=== PATIENT | female | born 1940 | race Caucasian/White ===

== ENCOUNTER 2018-10-20 11:22 | Emergency (ER) | payer MEDICARE ==
--- NOTE | 2018-10-20 11:33 | UC ---
Dizzy HPI HPI Summary: 78 yo female presents with weakness and feeling dizzy/lightheaded for the last 3 days. She is accompanied by her daughter. Daughter tells me that 3 days ago pt was very active cutting down branches and trees, but then developed fatigue, weakness, shuffling gait, and felt lightheaded. She rested and symptoms slightly improved. 2 days ago she woke up in bed and had difficulty sitting up in bed - took her about 15 minutes to get out of bed. Symptoms have continued into today. Daughter tells me that pt seems to be slurring her speech and acting "drunk" over the last 3 days. Pt does have a hx of an acoustic neuroma and last had an MRI about 2 years ago that they tell me revealed a prior CVA that pt was unaware of having. She is also diabetic. Currently denies fever, chills, SOB, chest pain, headache, numbness. - History Of Current Complaint Stated Complaint: BALANCE OFF Time Seen by Provider: 10/20/18 11:33 Hx Obtained From: Patient, Family/Casting Assistant Onset/Duration: Sudden Onset Severity Currently: None - Allergies/Home Medications Allergies/Adverse Reactions: Allergies Allergy/AdvReac Type Severity Reaction Status Date / Time Sulfa (Sulfonamide Allergy Intermediate Unknown Verified 10/20/18 11:41 Antibiotics) Reaction Details Home Medications: Home Medications Dapagliflozin 10 mg Tab (Nf) [Farxiga] 10 mg PO DAILY 10/20/18 [History Confirmed 10/20/18] PMH/Surg Hx/FS Hx/Imm Hx - Additional Past Medical History Additional PMH: Acoustic neuroma Endocrine History: Diabetes - Surgical History Surgical History: Yes Surgery Procedure, Year, and Place: CATARACTS - Family History Known Family History: Positive: Unknown - Social History Lives: With Family Substance Use Type: None Smoking Status (MU): Never Smoked Tobacco Review of Systems All Other Systems Reviewed And Are Negative: Yes Constitutional: Positive: Negative Skin: Positive: Negative Eyes: Positive: Negative ENT: Positive: Negative Respiratory: Positive: Negative Cardiovascular: Positive: Negative Gastrointestinal: Positive: Negative Genitourinary: Positive: Negative Motor: Positive: Negative Neurovascular: Positive: Negative Musculoskeletal: Positive: Negative Neurological: Positive: Weakness, Other - Dizziness Psychological: Positive: Negative Physical Exam - Summary Physical Exam Summary: GENERAL: NAD. WDWN. No pain distress. SKIN: No rashes, sores, ulcers, masses, lesions. HEENT: Head: AT/NC. Eyes: PERRLA. EOM intact. Conjunctiva clear without inflammation or discharge. Ears: Hearing grossly normal. TMs intact, no bulging, erythema, or edema. No hemotympanum Nose: Nasal mucosa pink and moist. NTTP maxillary and frontal sinus. Throat: Posterior oropharynx without exudates, erythema, or tonsillar enlargement. Uvula midline. NECK: Supple. Nontender. FROM CHEST: CTAB. No r/r/w. No accessory muscle use. Breathing comfortably and in no distress. CV: RRR. 3/5 systolic murmur. Pulses intact. Brisk cap refill. ABDOMEN: Soft. NTTP. Bowel sounds present MSK: FROM in B/L UEs and LEs with symmetric strength. NEURO: A&Ox3. 3 word recall, remote, recent memory, ability to follow 2-step directions, and attention intact. CN: II: Peripheral crow intact. Vision normal. III, IV, : EOMI. No nystagmus. PERRLA. V: Sensations intact and symmetric. Opens mouth and clenches teeth. VII: No facial asymmetry. Forehead wrinkles. Grins, shuts eyes, frowns, puffs cheeks. VIII: Hearing intact to finger rub. IX, X: Swallows and coughs. Uvula midline. XI: Shrugs shoulders. Turns head against resistance. XII: No tongue deviation Scigbc-sp-wcia are intact. SLURS SOME WORDS PSYCH: Age appropriate behavior. Triage Information Reviewed: Yes Vital Signs: Vital Signs: Temp Pulse Resp BP Pulse Ox 98.6 F 61 16 163/102 95 10/20/18 12:06 10/20/18 12:06 10/20/18 12:06 10/20/18 12:06 10/20/18 12:06 Vital Signs Reviewed: Yes National Institutes Of Health - NIH Scale Level of Consciousness: Alert/Keenly Responsive Ask Patient the Month and His/Her Age: Both Correct Ask Pt to Open/Close Eyes and Senior Lead Project Manager/Release Non-Paretic Hand: Both Correctly Best Gaze (Only Horizontal Eye Movement): Normal Visual Field Testing: No Visual Loss Facial Paresis-Pt to Smile & Close Eyes or Grimace Symmetry: Normal/Symmetrical Motor Function - Right Arm: No Drift-Holds 10 Seconds Motor Function - Left Arm: No Drift-Holds 10 Seconds Motor Function - Right Leg: No Drift-Holds 10 Seconds Motor Function - Left Leg: No Drift-Holds 10 Seconds Limb Ataxia-Must be out of Proportion to Weakness Present: Absent Sensory (Use Pinprick to Test Arms/Legs/Trunk/Face): Normal Best Language (Describe Picture, Name Items): No Aphasia Dysarthria (Read Several Words): Slurs Some Words Extinction and Inattention: No Abnormality Total Score: 1 Dizzy Course/Dx - Course Course Of Treatment: EKG NSR 61bpm with LVH. No ST changes as read by Dr. Henson POC glucose 175. Pt seems to be exhibiting CVA signs with dizziness, slurred speech, weakness, and elevated BP. Symptoms have been present for about 3 days as that was her last known well. I discussed my concerns with pt and her daughter and recommended ambulance transfer to the ED - they were agreeable to this and left via EMS in stable condition. Report called to Dr. Huynh in the ED - no code argueta given length of symptoms - Differential Dx/Diagnosis Provider Diagnosis: Dizziness, Slurred speech Discharge - Sign-Out/Discharge Documenting (check all that apply): Patient Departure All imaging exams completed and their final reports reviewed: No Studies - Discharge Plan Condition: Fair Disposition: TRANS HIGHER LVL OF CARE FAC Referrals: Shaheen Dykes MD [Primary Care Provider] - - Billing Disposition and Condition Condition: FAIR Disposition: Trans Higher Lvl of Care Fac
[2018-10-20 12:07] VITALS: BP 163/102
== END 2018-10-20 12:20 | disposition short-term general hospital (02) ==
LOC: UCEAST 11:22
DX: R42 Dizziness and giddiness (principal); R47.81 Slurred speech; E11.9 Type 2 diabetes mellitus without complications; Z88.2 Allergy status to sulfonamides
CPT/HCPCS: 93005; 99213; G0463

== ENCOUNTER 2018-12-03 01:42 | Inpatient (IN) | payer MEDICARE ==
--- NOTE | 2018-12-03 02:35 | ED ---
Shortness of Breath - HPI Summary HPI Summary: 78 year old F [facility] accompanied by daughter complains of shortness of breath since 2 days ago. Daughter states that patient woke daughter up prior to arrival because patient was scared she wasn't able to breath. Daughter states that patient does not wear O2 at home. Patient reports left sided low back pain. Patient reports slurred speech. Denies abdominal pain , vomiting, diarrhea, burning with urination. Symptoms aggravated by nothing. Symptoms alleviated by nothing. Patient has not treated the pain with any medications. Patient states she does not have hx shortness of breath. Patient states she does not have an inhaler. Patient states she had a stroke 6-7 weeks ago, was admitted for 2 nights, and discharged home with medications which she has been taking. Patient states she never had improvement in her neurological symptoms since being discharged. Per daughter, patient was seen by primary care provider on Saturday12/01/18 to be evaluated for headache, diffuse chest pain, ear ache, and was given medications. She has been taking these medications which has been making her dizzy and short of breath per daughter. Patient and daughter state that last month, patient talked to her doctors about about cardiac cath and she refused. - History of Current Complaint Chief Complaint: EDShortnessOfBreath Time Seen by Provider: 12/03/18 02:24 Hx Obtained From: Patient, Family/Dairy Lab Technician - daughter Onset/Duration: Lasting Days - 2, Still Present Timing: Constant Aggravating Factors: Nothing Alleviating Factors: Nothing - Allergy/Home Medications Allergies/Adverse Reactions: Allergies Allergy/AdvReac Type Severity Reaction Status Date / Time Sulfa (Sulfonamide Allergy Intermediate Unknown Verified 12/03/18 03:01 Antibiotics) Reaction Details PMH/Surg Hx/FS Hx/Imm Hx Endocrine/Hematology History: Reports: Hx Diabetes Denies: Hx Thyroid Disease Cardiovascular History: Reports: Hx Hypertension Denies: Hx Pacemaker/ICD Respiratory History: Denies: Hx Asthma, Hx Chronic Obstructive Pulmonary Disease (COPD) GI History: Denies: Hx Ulcer History: Denies: Hx Dialysis, Hx Renal Disease Sensory History: Reports: Hx Contacts or Glasses, Hx Hearing Aid - REMOVED Opthamlomology History: Reports: Hx Contacts or Glasses Neurological History: Reports: Other Neuro Impairments/Disorders - stroke Psychiatric History: Denies: Hx Panic Disorder - Surgical History Surgery Procedure, Year, and Place: CATARACTS Infectious Disease History: No Infectious Disease History: Denies: Hx Hepatitis, Hx Human Immunodeficiency Virus (HIV), Traveled Outside the [place] in Last 30 Days - Family History Known Family History: Negative: Cardiac Disease - Social History Alcohol Use: None Hx Substance Use: No Substance Use Type: Reports: None Hx Tobacco Use: No Smoking Status (MU): Never Smoked Tobacco Review of Systems - ROS Summary Review of Systems Summary: Home Medications Medication Instructions Recorded Confirmed Type Ascorbic Acid TAB* [Vitamin C 500 mg PO DAILY 10/20/18 10/20/18 History TAB*] Dapagliflozin 10 mg Tab (Nf) 10 mg PO DAILY 10/20/18 10/20/18 History [Farxiga] FLUoxetine CAP* [Prozac CAP*] 80 mg PO BEDTIME 10/20/18 10/20/18 History Gabapentin CAP(*) [Neurontin 300 300 mg PO BEDTIME 10/20/18 10/20/18 History CAP(*)] glipiZIDE TAB* [Glucotrol TAB*] 10 mg PO BID 10/20/18 10/20/18 History Aspirin 81 mg CHEW TAB* 81 mg PO DAILY #30 tab.chew 10/22/18 Rx Atorvastatin* [Lipitor 80 MG*] 80 mg PO DAILY #30 tab 10/22/18 Rx Clopidogrel TAB* [Plavix TAB*] 75 mg PO DAILY #30 tab 10/22/18 Rx Metoprolol Succinate XL TAB* 25 mg PO DAILY #30 tab.xl 10/22/18 Rx [Toprol XL TAB*] Positive: Shortness Of Breath Negative: Abdominal Pain, Vomiting, Diarrhea Negative: burning Positive: Other - left sided low back pain Positive: Slurred Speech All Other Systems Reviewed And Are Negative: Yes Physical Exam - Summary Physical Exam Summary: General: An elderly obese FEMALE. No acute distress. HEENT: Normocephalic, Atraumatic. Eyes: Conjuctiva normal, PERRL. Ears: TMs within normal limits. Nares: (-) discharge, (-) erythema. Oropharynx: Clear, mucous membranes moist, (-) exudates. Neck: Soft, FROM, (-) lymphadenopathy, (-) thyromegaly, (-) JVD. Cardiovascular: Normal sinus rhythm, (-) murmur. Lungs: Has audible wheezing, good breath sounds bilaterally Abdomen: Soft, tenderness in left lateral abdomen, non-distended, (-) organomegaly, normal bowel sounds. Back: Ecchymosis on right scapula area, Extremities: No edema. Skin: Warm, dry, (-) rash. Neuro: Alert and oriented x3, no focal deficits. Psychiatric: Mood normal, affect normal. Triage Information Reviewed: Yes Vital Signs On Initial Exam: Initial Vitals Temp Pulse Resp BP Pulse Ox 98.5 F 89 24 120/80 86 12/03/18 01:43 12/03/18 01:43 12/03/18 01:43 12/03/18 01:43 12/03/18 01:43 Vital Signs Reviewed: Yes Diagnostics - Vital Signs Vital Signs Temp Pulse Resp BP Pulse Ox 12/03/18 01:43 98.5 F 89 24 120/80 86 - Laboratory Result Diagrams: 12/03/18 02:54 12/03/18 02:54 Lab Statement: Any lab studies that have been ordered have been reviewed, and results considered in the medical decision making process. - Radiology CXR Radiology Interpretation Completed By: ED Physician Summary of Radiographic Findings: Right sided pneumonia, chf. Pending official report - EKG 0333 Cardiac Rate: NL - 86 BPM Summary of EKG Findings: EKG at 03:33 reveals normal sinus rhythm with rate of 86 BPM, no ischemic changes. New LBBB. Non STEMI. This EKG was reviewed and interpreted by Dr. Garcia. Re-Evaluation - Re-Evaluation First Eval Re-Evaluation Time: 03:12 Comment: CXR suggestive of right-sided pneumonia. Will start patient on Zosyn. Will order ABG Second Eval Re-Evaluation Time: 03:43 Comment: patient and daughter udpated on plan of care. they are informed of the possibility of admission. patient and daughter state that last month, patient talked to her doctors about about cardiac cath and she refused. patient refuses now too. Course/Dx - Course Course Of Treatment: 78 year old F presenting to [facility] accompanied by daughter complains of shortness of breath since 2 days ago. Patient reports left sided low back pain. Patient reports slurred speech. Denies abdominal pain, vomiting, diarrhea, burning with urination. Recent medication changes per daughter. Physical exam findings: an obese elderly female, audible wheezing, good breath sounds bilaterally, no edema, ecchymosis on right scapula area, tenderness in left lateral abdomen. CXR shows right sided pneumonia. Patient will be started on Zosyn. Bloodwork results with no significant abnormalities except for WBC 15.9, absolute neuts 14.5, absolute lymphs 0.7, INR 1.23, sodium 133, chloride 97, anion gap 13, BUN 61, creatinine 1.68, BUN/creatinine 36.3, glucose 380, troponin 2.45. ABG shows no significant abnormalities except for CO2 32, O2 59 , and O2 saturation 91.8. . In the ED course, the patient was given Duoneb x1 and hydated with Zosyn bag. Patient was placed on oxygen. EKG at 03:33 reveals normal sinus rhythm with rate of 86 BPM, no ischemic changes. New LBBB. Non STEMI. This EKG was reviewed and interpreted by Dr. Garcia. Patient and daughter state that last month, patient talked to her doctors about about cardiac cath and she refused. Patient refuses cardiac cath now too despite elevated troponin and shortness of breath. Dr. Martin, cardiology, recommends admission to the hospitalist. Dr. Rowe, hospitalist, agrees to admit patient at 03:49. The patient will be admitted to the hospitalist for further workup and management. - Diagnoses Provider Diagnoses: Shortness of breath, Pneumonia, Elevated troponin, CHF (congestive heart failure) - Physician Notifications Discussed Care of Patient With: Richie Martin Time Discussed With Above Provider: 03:41 Instructed by Provider To: Other - Dr. Martin, cardiology, recommends admission to the hospitalist. Dr. Rowe, hospitalist, agrees to admit patient at 03:49. Discharge ED - Sign-Out/Discharge Documenting (check all that apply): Patient Departure - Admit Patient Received Moderate/Deep Sedation with Procedure: No - Discharge Plan Condition: Stable Disposition: ADMITTED TO [facility] Referrals: Shaheen Dykes MD [Primary Care Provider] - - Billing Disposition and Condition Condition: STABLE Disposition: Admitted to [facility] - Attestation Statements Document Initiated by Scribe: Yes Documenting Scribe: Madison Quintero Provider For Whom Scribe is Documenting (Include Credential): Yasemin Garcia MD Scribe Attestation: Madison Calvert, scribed for Yasemin Garcia MD on 12/03/18 at 0527. Scribe Documentation Reviewed: Yes Provider Attestation: The documentation as recorded by the scribe, Madison Quintero accurately reflects the service I personally performed and the decisions made by me, Yasemin Garcia MD Status of Scribe Document: Viewed
[2018-12-03] MEDS ORDERED: Albuterol/Ipratropium NEB.SOL* Albuterol 2.5 MG/Ipratropium 0.5 MG 3 ML INH ONE (02:37)
[2018-12-03 03:01] LABS: ABS Lymphocytes 0.7 10^3/ul (1.0-4.8); ABS Monocytes 0.7 10^3/ul (0-0.8); ABS Neutrophils 14.5 10^3/ul (1.5-7.7); Hematocrit 42 % (35-47); Hemoglobin 13.7 g/dL (12.0-16.0); Lymphocyte % 4.3 %; Mean Corpuscular HGB Conc 33 g/dL (31-36); Mean Corpuscular Hemoglobin 29 pg (27-31); Mean Corpuscular Volume 89 fL (80-97); Mean Platelet Volume 7.9 fL (7.4-10.4); Platelet Count 367 10^3/uL (150-450); Red Blood Count 4.71 10^6 /uL (3.70-4.87); Red Cell Distribution Width 14 % (10-15); White Blood Count 15.9 10^3/uL (3.5-10.8)
[2018-12-03 03:06] LABS: INR 1.23 (0.82-1.09)
[2018-12-03] MEDS ORDERED: Piperacillin/Tazobac ADVAN(*) 3.375 GM in NS 0.9% 100 ML* 100 ML IVPB ONE (03:12)
[2018-12-03 03:19] LABS: ALT 21 U/L (7-52); AST 15 U/L (13-39); Albumin 3.8 g/dL (3.2-5.2); Albumin/Globulin Ratio 1.1 (1-3); Alkaline Phosphatase 89 U/L (34-104); Anion Gap 13 mmol/L (2-11); BUN/Creatinine Ratio 36.3 (8-20); Blood Urea Nitrogen 61 mg/dL (6-24); CO2 Carbon Dioxide 23 mmol/L (22-32); Calcium 9.6 mg/dL (8.6-10.3); Chloride 97 mmol/L (101-111); EGFR African American 35.8 (>60); EGFR Non-African American 29.6 (>60); Globulin 3.6 g/dL (2-4); Glucose 380 mg/dL (70-100); Potassium 4.2 mmol/L (3.5-5.0); Sodium 133 mmol/L (135-145); Total Protein 7.4 g/dL (6.4-8.9)
[2018-12-03 03:25] LABS: Troponin I 2.45 ng/mL (<0.04)
[2018-12-03] MEDS ORDERED: Furosemide IV* 10 MG/ML 2 ML VIAL (20 MG) IV SLOW PU ONE (04:43)
[2018-12-03] MEDS ORDERED: Nitroglycerin TAB 0.4 MG* 0.4 MG TAB SL ONE (04:50)
[2018-12-03] MEDS ORDERED: Dextrose 50% VIAL 50 ml IV PUSH PRN (04:56)
[2018-12-03 05:07] LABS: Creatine Kinase 43 U/L (10-223)
[2018-12-03 05:13] LABS: CKMB ng/mL 2.9 ng/mL (0.6-6.3)
[2018-12-03] MEDS ORDERED: Heparin VIAL(*) 5000 UNITS/ML VIAL (FIVE THOUSAND) SUBCUT SCH (06:00)
[2018-12-03] MEDS ORDERED: Aspirin 81 mg CHEW TAB* 81 MG TAB.CHEW PO ONE (06:15)
[2018-12-03 07:16] LABS: C Reactive Protein 110.79 mg/L (<8.01); Creatine Kinase 43 U/L (10-223)
[2018-12-03 07:23] LABS: CKMB ng/mL 3.5 ng/mL (0.6-6.3)
[2018-12-03 07:31] LABS: Troponin I 2.76 ng/mL (<0.04)
--- NOTE | 2018-12-03 07:46 | HP ---
CC: Primary care provider. HISTORY AND PHYSICAL: ADDENDUM: ASSESSMENT AND PLAN: Leukocytosis: The patient has an elevated white blood cell count. Again, she does not appear to be infected without any fever, cough , or sputum production. The leukocytosis may be secondary to acute myocardial infarction. We will need to follow this and monitor for signs of infection. Hyperlipidemia: Continue statin. DVT prophylaxis: According to the Adult Thrombosis Prophylaxis Risk Factor Assessment Guide, the patient has a total risk factor score of 4, making her high risk. Heparin 5000 units subcutaneous q.8 hours will be used for DVT prophylaxis. Code status is full. TIME SPENT: Sixty-five minutes was spent admitting this patient. [id number]/CPS #: [id number] MTDD
[2018-12-03] MEDS: Metoprolol Succinate XL TAB* 25 MG PO SCH (08:20)
--- NOTE | 2018-12-03 08:20 | HP ---
ADDENDUM NOW INCLUDED ON THIS REPORT CC: Primary Care Provider, Dr. Dykes * HISTORY AND PHYSICAL: DATE OF ADMISSION: 12/03/18 PRIMARY CARE PROVIDER: Dr. Dykes. CHIEF COMPLAINT: Shortness of breath. HISTORY OF PRESENT ILLNESS: Ms. Peacock is a 78-year-old female who was admitted last on 10/20/18 where she was diagnosed with CVA. Additionally, at that time, there was concern for an abnormal EKG. The patient was offered a stress test, however, she adamantly refused stating that she would not undergo cardiac catheterization. I felt that this could be considered as an outpatient. The patient states that since her discharge, she developed severe headache. She developed diffuse aches in her hips all the way up to her shoulders. She saw her PCP, Dr. Dykes, this past Saturday and was diagnosed with polymyalgia rheumatica. She was started on methylprednisolone in a tapering dose. The patient states the day after initiating the methylprednisolone, her headaches completely went away. On Saturday evening, however, the patient noted that her breathing became labored. She felt like she could not catch her breath. She denies any fever or chills. She has no cough. She has no sputum production. She has no sick contacts. She has noted that on Saturday evening, it felt harder to breathe while lying flat and she felt it was easier to breathe with sitting up. The patient denies any chest pain since being home, however, when she arrived to the emergency room, she did have severe left lower lateral chest pain that is somewhat posterior as well. She described this to be severe in nature. Of note, the patient is extremely hard of hearing and a difficult historian. PAST MEDICAL HISTORY: 1. Recent diagnosis of CVA. 2. Type 2 diabetes. 3. Depression. 4. Acoustic neuroma. 5. Hyperlipidemia. PAST SURGICAL HISTORY: Cataract surgery. MEDICATIONS: 1. Methylprednisolone 16 mg p.o. daily, on 12/03/18 tapering by 4 mg every day until done. 2. Glipizide 10 mg p.o. b.i.d. 3. Metoprolol XL 25 mg p.o. daily. 4. Gabapentin 300 mg p.o. q.h.s. 5. Fluoxetine 80 mg p.o. q.h.s. 6. Farxiga 10 mg p.o. daily. 7. Plavix 75 mg p.o. daily to complete 30 days, then will be done. 8. Lipitor 80 mg p.o. daily. 9. Aspirin 81 mg p.o. daily. 10. Vitamin C 500 mg p.o. daily. ALLERGIES: SULFA. FAMILY HISTORY: Father of an aneurysm at the age of 64. Mother of complications related to heart failure at the age of 88. SOCIAL HISTORY: The patient is a lifelong nonsmoker. She does not drink alcohol. She has 3 children. She lives with her daughter, Melani, who will be her healthcare proxy. REVIEW OF SYSTEMS: A complete 11-system review of systems was obtained. Pertinent positives and negatives are as per HPI and otherwise negative. PHYSICAL EXAMINATION GENERAL: The patient is a well-developed, elderly female, sitting up in stretcher, in no acute distress. VITAL SIGNS: Blood pressure is 106/77, pulse 91, respirations 38, temperature 98.5, O2 saturation 97% on 3 L. HEENT: Pupils are round. There is evidence of prior cataract extraction. Extraocular muscles are intact. Oropharynx is clear. Oral mucosa is dry. There is no submandibular, cervical, or supraclavicular adenopathy. PULMONARY: There are few crackles heard on the right and left upper lobes. CARDIAC: Normal S1, S2. Regular rate and rhythm. I do not appreciate any murmurs. There is no lower extremity edema. ABDOMEN: Bowel sounds are present. Abdomen is soft, nontender, nondistended. MUSCULOSKELETAL: There is no cyanosis or clubbing of the digits. There is full active range of motion of all four extremities. NEUROLOGIC: Cranial nerves II through XII appeared to be grossly intact. Sensation is intact to light touch throughout. Strength is 5/5 and symmetric in both upper and lower extremities bilaterally. PSYCH: The patient is alert. She is oriented x3. Again, she is a difficulty historian, but I believe that is related to her being very hard of hearing. SKIN: Warm and dry. There are no rashes. DIAGNOSTIC STUDIES/LAB DATA: WBC 15.9, hemoglobin 13.7, hematocrit 42, platelets 367. INR 1.23. Sodium 133, potassium 4.2, chloride 97, CO2 is 23, BUN 61, creatinine 1.68, glucose 380, lactic acid 2.0, calcium 9.6. Bilirubin 0.7, AST 15, ALT 21, alkaline phosphatase 89. CPK 43. CK-MB 2.9. Troponin 2.45 (I have asked this to be respun and rerun in the lab). BNP greater than 1300. Albumin 3.8. ABG 7.45/32/59. EKG reveals normal sinus rhythm with a new left bundle-branch block. Chest x-ray to my interpretation reveals diffuse pulmonary edema. ASSESSMENT AND PLAN: Mrs. Peacock is a 78-year-old female with history of recently diagnosed cerebrovascular accident, type 2 diabetes, hyperlipidemia, and possible new diagnosis of polymyalgia rheumatica made this past Saturday, who presents to the emergency room with complaints of shortness of breath. 1. Dyspnea. My suspicion is that the patient's dyspnea is secondary to acute congestive heart failure. She has diffuse patchy infiltrates on her chest x- ray and I would expect that if this was pneumonia, the patient would have some sort of cough, sputum production or appear to be acutely ill. She has none of those at this time making me suspicious that the patchy infiltrate seen on chest x-ray are in fact likely pulmonary edema. The patient's BNP is greater than 1300. In October, she had a BNP obtained and it was elevated at 465, but this is much more elevated than it was previously. She did have a transthoracic echocardiogram in October at the time of her diagnosis of her cerebrovascular accident and that revealed an EF of 50% to 55%. Due to likely new congestive heart failure, I am going to repeat the transthoracic echocardiogram to ensure that her EF is still the same. I want to give the patient Lasix, however, her creatinine is approximately twice her typical baseline. Her oral mucosa is dry. Additionally, I had the ER nurse give the patient a dose of nitroglycerin due to the complaints of severe left lower chest pain. She is slightly hypotensive and therefore, we will hold off on the Lasix for right now as the patient is not in any distress. I would like to administer the Lasix a little bit later this morning and see if this helps with her respiratory status. 2. Elevated troponin. The patient's troponin is elevated at 2.45. She did not complain of any chest pain until she arrived at the emergency room and then she developed severe left lower lateral chest pain. CK and CK-MB, however, are not elevated. Perhaps, this is very early acute myocardial infarction or the troponin is wrong. I have asked the lab to rerun the troponin sample by spinning it first and then rerunning. I am, however, concerned that the patient has a new left bundle-branch block. This is changed from October 2018. If the patient's troponin returns elevated, I will initiate heparin drip. She is already on aspirin, however, she has finished her Plavix. She will also continue on her metoprolol XL and Lipitor. The patient has adamantly refused cardiac catheterization, however, I have asked her to consider cardiology consultation to discuss further if her troponin does in fact return back positive. 3. Type 2 diabetes. The patient's glipizide and Farxiga are going to be held temporarily. She will be on Lispro sliding scale. She had a hemoglobin A1c obtained on 10/21/18 and it was elevated 8.3%. 4. Acute kidney injury. The patient has creatinine two times her baseline. She does appear to be dry on oral mucosa. As it appears that she likely has pulmonary edema, I do not want to administer any fluids. It is unclear what the insults to her kidney may be from. We will obtain kidney and bladder ultrasound to rule out hydronephrosis. 5. Leukocytosis. ADDENDUM: ASSESSMENT AND PLAN: Leukocytosis: The patient has an elevated white blood cell count. Again, she does not appear to be infected without any fever, cough , or sputum production. The leukocytosis may be secondary to acute myocardial infarction. We will need to follow this and monitor for signs of infection. Hyperlipidemia: Continue statin. DVT prophylaxis: According to the Adult Thrombosis Prophylaxis Risk Factor Assessment Guide, the patient has a total risk factor score of 4, making her high risk. Heparin 5000 units subcutaneous q.8 hours will be used for DVT prophylaxis. Code status is full. TIME SPENT: Sixty-five minutes was spent admitting this patient. [id number]/CPS #: [id number] #: [id number]
--- NOTE | 2018-12-03 08:21 | PN ---
Hospitalist Progress Note Date of Service: 12/03/18 HOSPITALIST PROGRESS NOTE Patient seen and examined at bedside. Care reviewed and d/w Sherry Medrano RN. Mrs Peacock is a 78yo F with PMH of acoustic neuroma, HLD, depression, type 2 DM, recent admission for CVA, who was noted to have EKGs at that time, but declined further w/u; who presented to ED with c/o dyspnea, found to have NSTEMI and CHF exacerbation. Lengthy conversation with patient at bedside. She's not interested in invasive or aggressive measures; she really wants to go home. We talked about goals of care and code status. She's inclined to pursue Palliative care and is thinking about being DNR, but her daughter is having a very hard time with her mom's decision. At the end of our conversation, patient removed her hearing aid and stated she "was tired of hearing". Selected Entries 12/03/18 12/03/18 10:18 13:00 Temperature 97.2 F Heart Rate 75 Respiratory 20 Rate Blood Pressure 117/76 (mmHg) O2 Sat by Pulse 90 Oximetry Gen: elderly lady sitting up in bed in NAD CVS: normal S1 and S2, RRR Chest: BS+ bilaterally with bibasilar crackles Abd: obese, soft, BS+ Ext: no edema Neuro: AAOx3, [place], [place] A/P: 1. NSTEMI - Will continue to monitor in ICU with medical management: Aspirin, Plavix, Heparin drip, Atorvastatin, Metoprolol. - Check serial trops until peak. - Check echo. - Palliative care consult to assist with Goals of care and Code status. 2. CHF exacerbation: - Continue diuresis and f/u echo. 3. Depression: - Plavix interacts with Fluoxetine - d/w Pharmacy and Psychiatry - will change to Effexor XR 37.5mg daily for 3 days, then 75mg daily for 3 days, then 150mg/ day (goal).
[2018-12-03] MEDS ORDERED: Vancomycin(*) 1,250 MG in NS 0.9% 250 ML* 250 ML IVPB ONE (08:30)
[2018-12-03] MEDS ORDERED: Perflutren Lipid Microsphere* 3 ML VIAL ONE (08:42)
[2018-12-03] MEDS: Heparin DRIP 25,000 UNITS(*) 25,000 UNITS/500 ML BAG IV SCH (08:56)
[2018-12-03] MEDS: Heparin VIAL(*) 5000 UNITS/ML VIAL (FIVE THOUSAND) IV SCH ×3 (08:56→22:37)
[2018-12-03] MEDS ORDERED: Cefepime ADVAN(*) 1 GM in NS 0.9% 50 ML* 50 ML IVPB SCH (09:00)
[2018-12-03] MEDS ORDERED: Vancomycin per Pharmacy* NOTE FOLLOW UP SCH (09:00)
[2018-12-03] MEDS ORDERED: Clopidogrel TAB* 75 MG PO SCH (09:00)
[2018-12-03] MEDS ORDERED: Aspirin 81 mg CHEW TAB* 81 MG TAB.CHEW PO SCH (09:00)
[2018-12-03] MEDS ORDERED: Metoprolol Succinate XL TAB* 25 MG PO SCH (09:00)
[2018-12-03] MEDS: Insulin LISPRO* 1 UNITS UNIT SUBCUT SCH ×4 (09:24→21:40)
[2018-12-03] MEDS: Furosemide TAB* 20 MG PO SCH (10:20)
[2018-12-03] MEDS: Clopidogrel TAB* 75 MG PO SCH (10:20)
[2018-12-03] MEDS: Cefepime 1 GM in Dextrose(*) 1 GM/50 ML BAG IV SCH ×2 (10:20→20:56)
--- NOTE | 2018-12-03 11:43 | CONS ---
CONSULTATION REPORT: DATE OF CONSULT: 12/03/18 ATTENDING PHYSICIAN: Dr. Mirta Goel, Cardiology.* (DICTATED BY ZEHRA RAMIREZ NP) PRIMARY PHYSICIAN: Dr. Dykes. PRIMARY NEUROLOGIST: Dr. Hollingsworth. REASON FOR CONSULT: Elevated troponin, new left bundle-branch block. HISTORY OF PRESENT ILLNESS: This is a 78-year-old female patient with recent CVA on 10/20/18 in addition to presumed remote myocardial infarction, hyperlipidemia, type 2 diabetes, and acoustic neuroma who presented to [facility] on 12/03/18 due to progressive shortness of breath. The patient states that since she was discharged on 10/22/18 due to CVA, she has completed her 30-day course of aspirin and Plavix therapy and has been taking aspirin 81 mg a day and is compliant with medications. She states that for the past 2 to 3 weeks she has been noticing increased shortness of breath, however, it became profound starting on Saturday after she received her flu shot. She adds that she came into the emergency department early this morning due to severe shortness of breath that was not getting better and it "scared me." She adds that it was improved with sitting up and elevating head of bed; however, because it was constant ongoing, she opted for evaluation. She denies chest discomfort, neck discomfort, or shoulder discomfort. Apparently, she has history of falls, however, with an increased frequency. She states she has fallen 4 to 5 times the past week. Denies striking head, although she has noticeable bruises involving her right upper back, and according to her daughter, she fell forward in her closet and had fallen on her left side. She is currently complaining of left flank pain which apparently started in the emergency department early this morning. She denies any dysuria, hematuria, sputum production, fever, chills, nausea, or vomiting. Does report a 3-day history of decreased oral intake and weakness. Does report chest congestion. Otherwise, offers no other symptoms at this time. Her daughter, Yuly, is at her bedside whom the patient resides with. Last echocardiogram according to her medical records was 10/20/18. Per report, LVEF 50% to 55% with hypokinesis involving the basal inferior myocardium, positive diastolic dysfunction. There was aneurysmal appearance of the atrial septum, trace mitral insufficiency, mild aortic stenosis. Last ischemic evaluation offered last admission October 2018, however, the patient declined. PAST MEDICAL HISTORY: 1. CVA, October 2018. 2. Remote myocardial infarction per medical records. 3. Hyperlipidemia. 4. Type 2 diabetes. 5. Depression. 6. Acoustic neuroma. 7. PMR. 8. Frequent falls. PAST SURGICAL HISTORY: Listed includes left cataract surgery. HOME MEDICATIONS: According to the admission med rec: 1. Metoprolol 25 mg a day. 2. Aspirin 81 mg a day. 3. Lipitor 80 mg a day. 4. Farxiga 10 mg a day. 5. Glipizide 10 mg p.o. b.i.d. 6. Gabapentin as directed. ALLERGIES: Listed include SULFA, unknown reaction. FAMILY HISTORY: Noncontributory. SOCIAL HISTORY: The patient reports that she has never smoked. Denies alcohol use or drug use. She lives with her daughter, Yuly, and she is currently listed as a full code. REVIEW OF SYSTEMS: All systems have been reviewed, otherwise negative except as mentioned in the HPI. PHYSICAL EXAM: Last set of vital signs per medical record; temperature 98.2, pulse 82, respirations 24, oxygenation 96% on 3 L nasal cannula, blood pressure 115/85. General: The patient is lying in bed with head of bed elevated at 45 degrees, appears tachypneic, otherwise no apparent distress. She is alert and oriented, slightly anxious, but cooperative with exam. Daughter, Yuly, at the bedside. HEENT: Head is atraumatic, normocephalic. Oral mucosa is moist. Tongue is midline. Neck: Supple. Trachea midline. Positive JVD. No carotid bruits. Cardiac: Diminished S1, S2. Regular rate and rhythm. There is a positive 2/6 early systolic aortic murmur. There is a diffuse high pitch murmur auscultated across the entire pericardium. Lungs: Auscultated posteriorly. Positive inspiratory rales noted throughout, most noticeably in bilateral bases. Respirations are labored at a rate of 24. No evidence of retractions noted. /GI: Abdomen is distended, nontender. Normoactive bowel sounds x4. No hepatomegaly with palpation. Back: Positive tenderness involving left flank with palpation. Bruises noted right shoulder region. Extremities: No pedal edema. No clubbing, no cyanosis. Peripheral vascular: 2+ brachial and dorsalis pedis pulses palpated bilaterally and symmetrically. Skin: Intact. Diffuse bruises noted. DIAGNOSTIC STUDIES/LAB DATA: Blood work obtained 12/03/18: White count 15.9, hemoglobin 13.7, hematocrit 42, platelets 367. INR 1.23. Sodium 133, potassium 4.2, chloride 97, carbon dioxide 23, BUN 61, creatinine 1.68. Troponin #1, 2.45; troponin #2, 2.76. CK-MB and total CK have remained normal. C-reactive protein is 110.79. BNP greater than 1300. ECG obtained 12/03/18 at 0612 was reviewed. Sinus rhythm, rate 83 with new left bundle-branch block. Prior ECGs were reviewed from October admission. She was in sinus rhythm with intraventricular conduction delay with evolving anterolateral T- wave inversion. Today's echocardiogram is currently pending. Chest x-ray per radiology report from 12/03/18; there is a multifocal consolidation greater on the right than left. ASSESSMENT AND PLAN: 1. New left bundle-branch block with troponin elevation; the patient was admitted for possible [id number] myocardial infarction, currently on IV heparin therapy, denies chest pain. Her breathing effort has improved, although she is still tachypneic. The patient at this time current time is citing that she is not interested in any invasive procedures, thus Dr. Meza has consulted Palliative Care to outline goals of care. The patient is currently full code, although she expressed interest in becoming DNR. Would recommend continuing aspirin 81 mg a day. We will start Plavix 75 mg a day. She is not a candidate for Effient therapy due to history of cerebrovascular accident and given her frequent fall history would avoid Brilinta given increased bleed risk. Fluoxetine does reduce efficacy of Plavix, thus I have asked primary team to evaluate other alternatives. Continue metoprolol therapy and Lipitor therapy. Echocardiogram is pending. We will follow closely. 2. Decompensated heart failure. In October, she had low normal EF with known diastolic dysfunction. Would resume diuretics. At this current time, we will start gentle diuresis with Lasix 20 mg p.o. daily. Recommend daily BMPs given renal insufficiency, strict intake and output, low-sodium diet. We will await this admission's echocardiogram and follow closely. She is on metoprolol therapy, would avoid ACEs and ARBs at this time due to acute renal insufficiency. 3. Complaints of left flank pain with leukocytosis. Renal sonogram is pending. Defer to primary team. She did state that she fell a week ago and did land on her left side. 4. Acute renal insufficiency. Creatinine is 1.68. Upon review, it appears that her baseline renal function is 0.8 to 0.9. She has had reduced oral intake for the past 3 to 4 days with a 4-pound weight reduction. We will follow closely. 5. Recent cerebrovascular accident, on aspirin therapy. 6. Disposition, pending course. Code status and goals of care to be addressed. The palliative care consult was placed by primary team. Discussed with Dr. Mirta Goel, who agrees with the above assessment and plan. Thank you for this kind consultation. We will continue to follow the patient. ZEHRA RAMIREZ NP [id number]/[facility] #: [id number] RENEE
[2018-12-03 12:29] LABS: Troponin I 3.86 ng/mL (<0.04)
--- NOTE | 2018-12-03 14:25 | ECHO ---
*[facility]* [place] [address] Fax #: [phone] Transthoracic Echocardiogram Patient: Laura Peacock : 1940 Study Date: 12/03/2018 Age: 78 Gender: F HR: 83 bpm Height: 65 in /165.1 cm BSA: 1.92 m^2 Weight: 185.6 lb /84.4 kg BMI: 31 kg/m^2 *Dining Room Helper: Melly Jenkins [facility] *Referring Physician: * Nicki RoweReading Physician: * Mirta Goel MD Indications: Chest Pain, unspecified. Congestive Heart Failure. History: Left bundle branch block. Aortic stenosis. Risk factors: Hypertension. Diabetes mellitus. Conclusions Summary: - Left ventricle: The cavity size is mildly dilated. Wall thickness is mildly increased. Systolic function is severely reduced. The estimated ejection fraction is 20-25%. Hypokinesis of the entireanteroseptal and inferoseptal myocardium. Hypokinesis of the entireinferior myocardium. Doppler parameters are consistent with elevated ventricular end-diastolic filling pressure. - Right ventricle: Systolic function is mildly reduced. - Mitral valve: There is moderate regurgitation, directed posteriorly and toward the free wall. - Aortic valve: The findings are consistent with mild stenosis. The mean systolic gradient is 4.0 mm Hg. The LVOT to aortic valve VTI ratio is 0.5. The valve area by the velocity-time integral method is 1.60 cm^2. The valve area by the peak velocity method is 1.80 cm^2. - Tricuspid valve: There is mild regurgitation. - Pulmonary arteries: Systolic pressure is mildly to moderately increased. The peak pressure during systole by Doppler is 45.0 mm Hg. - Compared with prior echocardiogram of 10/21/18, prior ejection fraction 50-55%, base of the inferior wall was hypo/akinetic, but all other wall motion abnormalities are new. Mitral regurgitation has increased from trace, not significantly changed based on 2D imaging mean gradient previously higher - 12 mmHg, but difficult to compare with newly depressed ejection fraction), tricuspid regurgitation has increased from trace, elevated pulmonary artery pressure newly noted. Study data: Transthoracic echocardiogram. Procedure: Transthoracic echocardiography was performed. Image quality was adequate. Intravenous Definity , 2 mlswas administered. Complete 2D, spectral Doppler, and color flow Doppler. Location: ICU Patient status: Inpatient. Patient room number: 10. Rhythm: Normal sinus rhythm with PVC's. Findings Left ventricle: The cavity size is mildly dilated. Wall thickness is mildly increased. Systolic function is severely reduced. The estimated ejection fraction is 20-25%. Regional wall motion abnormalities: Hypokinesis of the entireanteroseptal and inferoseptal myocardium. Hypokinesis of the entireinferior myocardium. Doppler parameters are consistent with abnormal left ventricular relaxation (grade 1 diastolic dysfunction). Doppler parameters are consistent with elevated ventricular end-diastolic filling pressure. Right ventricle: The cavity size is normal. Wall thickness is mildly increased. Systolic function is mildly reduced. Left atrium: The atrium is mildly dilated. Right atrium: The atrium is normal in size. Mitral valve: The Mitral valve annulus appears calcified. The leaflets are mildly thickened. Mobility of the posterior leaflet is mildly restricted. There is no evidence of stenosis. There is moderate regurgitation, directed posteriorly and toward the free wall. Aortic valve: The valve is trileaflet. The leaflets are moderately calcified. The findings are consistent with mild stenosis. There is no significant regurgitation. Tricuspid valve: The leaflets are normal thickness. There is no evidence of stenosis. There is mild regurgitation. Pulmonic valve: Not well visualized. There is trace regurgitation. Aorta: The aortic root appears normal. The aortic arch appears normal. Pericardium: There is no significant pericardial effusion. Pulmonary arteries: Not well visualized. Systolic pressure is mildly to moderately increased. Systemic veins: Inferior vena cava: The vessel is dilated. There is (< 50%) respiratory change in the IVC dimension. Measurements Left ventricle Value Ref Aortic valve continued Value Ref NIMISHA, LAX (H) 5.5 cm 3.8 - 5.2 Peak grad, S 8.0 mm Hg ----- ESD, LAX (H) 4.7 cm 2.2 - 3.5 LVOT/AV, VTI ratio 0.5 ----- FS, LAX (L) 14 % 27 - 45 VIDA, VTI 1.60 cm^2 ----- PW, ED, LAX (H) 1.0 cm 0.6 - 0.9 VIDA, Vmax 1.80 cm^2 ----- E', lat leatha, TDI 10.5 cm/sec >=10.0 E/e', lat leatha, 11 Mitral valve Value Ref TDI Peak E 1.2 m/sec ----- E', med leatha, TDI (L) 3.8 cm/sec >=7.0 Peak A 1.33 m/sec - ---- E/e', med leatha, 32 Decel time 100 ms ---- - TDI PHT 50 ms ----- E', avg, TDI 7.2 cm/sec Mean grad, D 3.0 mm Hg ---- - E/e', avg, TDI (H) 17 <=14 Peak grad, D 7.0 mm Hg - ---- Peak E/A ratio 0.9 ----- LVOT Value Ref MVA, PHT 4.4 cm^2 ----- Diam, S 2.04 cm ERO, PISA 0.18 cm^2 ----- Area 3.3 cm^2 MR vol, PISA 21 ml ----- Peak arielle, S 0.82 m/sec VTI, S 12.0 cm Pulmonic valve Value Ref Peak grad, S 3 mm Hg Peak v, S 0.6 m/sec ----- Mean grad, S 1 mm Hg Peak grad, S 1.0 mm Hg ----- Ventricular septum Value Ref Tricuspid valve Value Ref IVS, ED (H) 1.2 cm 0.6 - 0.9 TR peak v (H) 3.1 m/sec <=2.8 Peak RV-RA grad, S 38 mm Hg ----- Right ventricle Value Ref NIMISHA, LAX 2.1 cm Aortic root Value Ref NIMISHA minor ax, A4C 2.6 cm 1.9 - 3.5 Root diam 3.1 cm <4.1 mid Pressure, S 46 mm Hg Ascending aorta Value Ref AAo AP diam, S 3.0 cm ----- Left atrium Value Ref AP dim, ES (H) 4.10 cm 2.70 - Aortic arch Value Ref 3.80 Arch diam 2.8 cm ----- ML dim, A4C 4.5 cm SI dim, A4C 5.7 cm Decending aorta Value Ref Vol/bsa, ES, A/L (H) 40 ml/m^2 16 - 34 Maged peak arielle 0.29 m/sec ----- Right atrium Value Ref Pulmonary artery Value Ref SI dim, ES 4.0 cm 3.4 - 5.3 Pressure, S 45.0 mm Hg ----- ML dim, ES, A4C 3.6 cm 2.6 - 4.4 SI dim, ES, A4C 4.0 cm 3.4 - 5.3 Inferior vena cava Value Ref Diam 2.7 cm ----- Aortic valve Value Ref Leatha diam, ED 1.9 cm Peak v, S 1.4 m/sec VTI, S 23.0 cm Mean grad, S 4.0 mm Hg Legend: (L) and (H) erika values outside specified reference range. Prepared and electronically signed by Mirta Goel MD 12/03/2018 14:24
[2018-12-03] MEDS: Morphine INJ* 2 MG/ML 1 ML SYRINGE (TWO MG - NEW SYRINGE VERSION) IV PRN ×2 (15:09→19:36)
--- NOTE | 2018-12-03 15:51 | CONSULT ---
Palliative / Hospice Consult Ordering Provider: Nalini Nation - PCPChaya Referal Reason: Goals of care/no bowel meds/MS prn - Subjective Code Status: DNR Advance Directives Location: No Advance Directives MOLST Part A Completed: Yes - completed with pt and daughter MOLST Part E Completed:: Yes - completed jwivon pt and daughter - History or Present Illness History or Present Illness: 78yo female with recent CVA and NSTEMI presents to ER with shortness of breathe. PMH is significant for CVA 10/20/18 and EKG abnormality offered stress test but declined, hard of hearing, DM type 2, acoustic neuroma, hyperlipidemia and recently treated for polymyalgia rheumatica with steroids. PSHx non smoker, no etoh, no drugs, retired from [employer], 3 children and lives with her daughter Melani, who is her HCP. Xdhintc-FHS-mkykbyfari consolidation R>L, ekg- nsr with LBBB, Echo-EF 20-25% & mod regurge, wbc 15.9, H/H 13.7/42, BUN/Cr 61/ 1.68, egfr 29.6, troponin 2.76, BNP>1300, alb 3.8, CRP 110.79 and INR 1.23. Pt was admitted with NSTEMI, CHF, JEFF and presumed pneumonia. All history is from pt, family and medical record. Lab Values: Abnormal Lab Results 12/03/18 12/03/18 12/03/18 02:48 02:54 02:54 WBC 15.9 H RBC 4.71 Hgb 13.7 Hct 42 MCV 89 MCH 29 MCHC 33 RDW 14 Plt Count 367 MPV 7.9 Neut % (Auto) 91.4 Lymph % (Auto) 4.3 Alexander % (Auto) 4.1 Eos % (Auto) 0.0 Baso % (Auto) 0.2 Absolute Neuts (auto) 14.5 H Absolute Lymphs (auto) 0.7 L Absolute Monos (auto) 0.7 Absolute Eos (auto) 0.0 Absolute Basos (auto) 0.0 Absolute Nucleated RBC 0.0 Nucleated RBC % 0.0 INR (Anticoag Therapy) APTT Patient Temperature ABG pH ABG pH (Temp Correct) ABG pCO2 ABG pCO2 (Temp Corrct ABG pO2 ABG pO2 (Temp Correct ABG HCO3 ABG O2 Saturation ABG Base Excess Respiration Rate O2 Delivery Device Ventilator Type Vent Mode FiO2 Inspiratory Time PEEP Pressure Support Pressure Control EPAP IPAP BiPAP Sodium 133 L Potassium 4.2 Chloride 97 L Carbon Dioxide 23 Anion Gap 13 H BUN 61 H Creatinine 1.68 H Est GFR ( Amer) 35.8 Est GFR (Non-Af Amer) 29.6 BUN/Creatinine Ratio 36.3 H Glucose 380 H Lactic Acid Calcium 9.6 Total Bilirubin 0.70 AST 15 ALT 21 Alkaline Phosphatase 89 Total Creatine Kinase 43 CK-MB (CK-2) 2.9 Troponin I 2.45 H* C-Reactive Protein B-Natriuretic Peptide > 1300 H Total Protein 7.4 Albumin 3.8 Globulin 3.6 Albumin/Globulin Ratio 1.1 12/03/18 12/03/18 12/03/18 02:54 02:54 03:25 WBC RBC Hgb Hct MCV MCH MCHC RDW Plt Count MPV Neut % (Auto) Lymph % (Auto) Alexander % (Auto) Eos % (Auto) Baso % (Auto) Absolute Neuts (auto) Absolute Lymphs (auto) Absolute Monos (auto) Absolute Eos (auto) Absolute Basos (auto) Absolute Nucleated RBC Nucleated RBC % INR (Anticoag Therapy) 1.23 H APTT Patient Temperature Not Reportable ABG pH 7.45 ABG pH (Temp Correct) Not Reportable ABG pCO2 32 L ABG pCO2 (Temp Corrct Not Reportable ABG pO2 59 L* ABG pO2 (Temp Correct Not Reportable ABG HCO3 23.9 ABG O2 Saturation 91.8 L ABG Base Excess -1.0 Respiration Rate Not Reportable O2 Delivery Device n/c Ventilator Type Not Reportable Vent Mode Not Reportable FiO2 29 Inspiratory Time Not Reportable PEEP Not Reportable Pressure Support Not Reportable Pressure Control Not Reportable EPAP Not Reportable IPAP Not Reportable BiPAP Not Reportable Sodium Potassium Chloride Carbon Dioxide Anion Gap BUN Creatinine Est GFR ( Amer) Est GFR (Non-Af Amer) BUN/Creatinine Ratio Glucose Lactic Acid 2.0 Calcium Total Bilirubin AST ALT Alkaline Phosphatase Total Creatine Kinase CK-MB (CK-2) Troponin I C-Reactive Protein B-Natriuretic Peptide Total Protein Albumin Globulin Albumin/Globulin Ratio 12/03/18 12/03/18 12/03/18 06:41 08:27 11:43 WBC RBC Hgb Hct MCV MCH MCHC RDW Plt Count MPV Neut % (Auto) Lymph % (Auto) Alexander % (Auto) Eos % (Auto) Baso % (Auto) Absolute Neuts (auto) Absolute Lymphs (auto) Absolute Monos (auto) Absolute Eos (auto) Absolute Basos (auto) Absolute Nucleated RBC Nucleated RBC % INR (Anticoag Therapy) APTT 33.8 Patient Temperature ABG pH ABG pH (Temp Correct) ABG pCO2 ABG pCO2 (Temp Corrct ABG pO2 ABG pO2 (Temp Correct ABG HCO3 ABG O2 Saturation ABG Base Excess Respiration Rate O2 Delivery Device Ventilator Type Vent Mode FiO2 Inspiratory Time PEEP Pressure Support Pressure Control EPAP IPAP BiPAP Sodium Potassium Chloride Carbon Dioxide Anion Gap BUN Creatinine Est GFR ( Amer) Est GFR (Non-Af Amer) BUN/Creatinine Ratio Glucose Lactic Acid Calcium Total Bilirubin AST ALT Alkaline Phosphatase Total Creatine Kinase 43 CK-MB (CK-2) 3.5 Troponin I 2.76 H* 3.86 H* C-Reactive Protein 110.79 H B-Natriuretic Peptide Total Protein Albumin Globulin Albumin/Globulin Ratio 12/03/18 15:15 WBC RBC Hgb Hct MCV MCH MCHC RDW Plt Count MPV Neut % (Auto) Lymph % (Auto) Alexander % (Auto) Eos % (Auto) Baso % (Auto) Absolute Neuts (auto) Absolute Lymphs (auto) Absolute Monos (auto) Absolute Eos (auto) Absolute Basos (auto) Absolute Nucleated RBC Nucleated RBC % INR (Anticoag Therapy) APTT 45.8 H Patient Temperature ABG pH ABG pH (Temp Correct) ABG pCO2 ABG pCO2 (Temp Corrct ABG pO2 ABG pO2 (Temp Correct ABG HCO3 ABG O2 Saturation ABG Base Excess Respiration Rate O2 Delivery Device Ventilator Type Vent Mode FiO2 Inspiratory Time PEEP Pressure Support Pressure Control EPAP IPAP BiPAP Sodium Potassium Chloride Carbon Dioxide Anion Gap BUN Creatinine Est GFR ( Amer) Est GFR (Non-Af Amer) BUN/Creatinine Ratio Glucose Lactic Acid Calcium Total Bilirubin AST ALT Alkaline Phosphatase Total Creatine Kinase CK-MB (CK-2) Troponin I C-Reactive Protein B-Natriuretic Peptide Total Protein Albumin Globulin Albumin/Globulin Ratio Laboratory Last Values WBC 15.9 10^3/uL (3.5-10.8) H 12/03/18 02:54 RBC 4.71 10^6 /uL (3.70-4.87) 12/03/18 02:54 Hgb 13.7 g/dL (12.0-16.0) 12/03/18 02:54 Hct 42 % (35-47) 12/03/18 02:54 MCV 89 fL (80-97) 12/03/18 02:54 MCH 29 pg (27-31) 12/03/18 02:54 MCHC 33 g/dL (31-36) 12/03/18 02:54 RDW 14 % (10-15) 12/03/18 02:54 Plt Count 367 10^3/uL (150-450) 12/03/18 02:54 MPV 7.9 fL (7.4-10.4) 12/03/18 02:54 Neut % (Auto) 91.4 % 12/03/18 02:54 Lymph % (Auto) 4.3 % 12/03/18 02:54 Alexander % (Auto) 4.1 % 12/03/18 02:54 Eos % (Auto) 0.0 % 12/03/18 02:54 Baso % (Auto) 0.2 % 12/03/18 02:54 Absolute Neuts (auto) 14.5 10^3/ul (1.5-7.7) H 12/03/18 02:54 Absolute Lymphs (auto) 0.7 10^3/ul (1.0-4.8) L 12/03/18 02:54 Absolute Monos (auto) 0.7 10^3/ul (0-0.8) 12/03/18 02:54 Absolute Eos (auto) 0.0 10^3/ul (0-0.6) 12/03/18 02:54 Absolute Basos (auto) 0.0 10^3/ul (0-0.2) 12/03/18 02:54 Absolute Nucleated RBC 0.0 10^3/ul 12/03/18 02:54 Nucleated RBC % 0.0 12/03/18 02:54 INR (Anticoag Therapy) 1.23 (0.82-1.09) H 12/03/18 02:54 APTT 45.8 seconds (26.0-38.0) H 12/03/18 15:15 Patient Temperature Not Reportable 12/03/18 03:25 ABG pH 7.45 (7.35-7.45) 12/03/18 03:25 ABG pH (Temp Correct) Not Reportable 12/03/18 03:25 ABG pCO2 32 mmHg (35-45) L 12/03/18 03:25 ABG pCO2 (Temp Corrct Not Reportable 12/03/18 03:25 ABG pO2 59 mmHg (80-100) L* 12/03/18 03:25 ABG pO2 (Temp Correct Not Reportable 12/03/18 03:25 ABG HCO3 23.9 mmol/L (19-31) 12/03/18 03:25 ABG O2 Saturation 91.8 % (94.0-98.0) L 12/03/18 03:25 ABG Base Excess -1.0 mmol/L (-2.0-2.0) 12/03/18 03:25 Respiration Rate Not Reportable 12/03/18 03:25 O2 Delivery Device n/c 12/03/18 03:25 Ventilator Type Not Reportable 12/03/18 03:25 Vent Mode Not Reportable 12/03/18 03:25 FiO2 29 12/03/18 03:25 Inspiratory Time Not Reportable 12/03/18 03:25 PEEP Not Reportable 12/03/18 03:25 Pressure Support Not Reportable 12/03/18 03:25 Pressure Control Not Reportable 12/03/18 03:25 EPAP Not Reportable 12/03/18 03:25 IPAP Not Reportable 12/03/18 03:25 BiPAP Not Reportable 12/03/18 03:25 Sodium 133 mmol/L (135-145) L 12/03/18 02:54 Potassium 4.2 mmol/L (3.5-5.0) 12/03/18 02:54 Chloride 97 mmol/L (101-111) L 12/03/18 02:54 Carbon Dioxide 23 mmol/L (22-32) 12/03/18 02:54 Anion Gap 13 mmol/L (2-11) H 12/03/18 02:54 BUN 61 mg/dL (6-24) H 12/03/18 02:54 Creatinine 1.68 mg/dL (0.51-0.95) H 12/03/18 02:54 Est GFR ( Amer) 35.8 (>60) 12/03/18 02:54 Est GFR (Non-Af Amer) 29.6 (>60) 12/03/18 02:54 BUN/Creatinine Ratio 36.3 (8-20) H 12/03/18 02:54 Glucose 380 mg/dL (70-100) H 12/03/18 02:54 Lactic Acid 2.0 mmol/L (0.5-2.0) 12/03/18 02:54 Calcium 9.6 mg/dL (8.6-10.3) 12/03/18 02:54 Total Bilirubin 0.70 mg/dL (0.2-1.0) 12/03/18 02:54 AST 15 U/L (13-39) 12/03/18 02:54 ALT 21 U/L (7-52) 12/03/18 02:54 Alkaline Phosphatase 89 U/L (34-104) 12/03/18 02:54 Total Creatine Kinase 43 U/L (10-223) 12/03/18 06:41 CK-MB (CK-2) 3.5 ng/mL (0.6-6.3) 12/03/18 06:41 Troponin I 3.86 ng/mL (<0.04) H* 12/03/18 11:43 C-Reactive Protein 110.79 mg/L (<8.01) H 12/03/18 06:41 B-Natriuretic Peptide > 1300 pg/mL (<=100) H 12/03/18 02:48 Total Protein 7.4 g/dL (6.4-8.9) 12/03/18 02:54 Albumin 3.8 g/dL (3.2-5.2) 12/03/18 02:54 Globulin 3.6 g/dL (2-4) 12/03/18 02:54 Albumin/Globulin Ratio 1.1 (1-3) 12/03/18 02:54 - Objective Active Medications: Aspirin (Aspirin 81 Mg Chew Tab*) 81 mg PO DAILY [facility] Atorvastatin Calcium (Lipitor*) 80 mg PO QPM [facility] Clopidogrel Bisulfate (Plavix Tab*) 75 mg PO DAILY [facility] Last Admin: 12/03/18 10:20 Dose: 75 mg Dextrose (Dextrose 50% Vial 50 Ml*) 25 ml IV PUSH .FOR FS < 60 - SS PRN PRN Reason: FS < 60 Furosemide (Lasix Tab*) 20 mg PO DAILY [facility] Last Admin: 12/03/18 10:20 Dose: 20 mg Gabapentin (Neurontin Cap(*)) 300 mg PO BEDTIME DAISY Heparin Sodium (Porcine) (Heparin Vial(*)) 0 units IV .PER PROTOCOL DAISY Last Admin: 12/03/18 08:56 Dose: 4,000 units Heparin Sodium/Dextrose (Heparin Drip 25,000 Units(*)) 25,000 units in 500 mls @ 0 mls/hr IV PER RATE DAISY; Protocol Last Admin: 12/03/18 08:56 Dose: 16 mls/hr Cefepime HCl (Maxipime 1 Gm In Dextrose Duplex (*)) 1 gm in 50 mls @ 100 mls/ hr IV Q12H DAISY Last Admin: 12/03/18 10:20 Dose: 100 mls/hr Vancomycin HCl 750 mg/ Sodium (Chloride) 250 mls @ 166.667 mls/hr IVPB Q12HR [facility] Insulin Human Lispro (Humalog*) 0 units SUBCUT ACHS DAISY; Protocol Last Admin: 12/03/18 13:00 Dose: 3 units Metoprolol Succinate (Toprol Xl Tab*) 25 mg PO DAILY [facility] Last Admin: 12/03/18 08:20 Dose: 25 mg Morphine Sulfate (Morphine Inj (Syringe))*) 2 mg IV Q4H PRN PRN Reason: PAIN - MODERATE Last Admin: 12/03/18 15:09 Dose: 2 mg Pharmacy Consult (Vancomycin Per Pharmacy*) 1 note FOLLOW UP .VANC PER PHARMACY DAISY; Protocol Pharmacy Profile Note (Vancomycin Trough Check) 1 note FOLLOW UP ONCE ONE Stop: 12/05/18 08:31 Venlafaxine HCl (Effexor Xr Cap*) 37.5 mg PO BEDTIME [facility] Vital Signs: Vital Signs: Temp Pulse Resp BP Pulse Ox 97.2 F 82 27 122/78 91 12/03/18 10:18 12/03/18 15:01 12/03/18 15:09 12/03/18 15:01 12/03/18 15:01 Patient Weight: Weight 84.8 kg Intake and Output: Intake & Output 12/01/18 12/02/18 12/03/1819 06:59 06:59 06:59 06:59 Intake Total 100 Output Total 200 Balance 100 -200 Weight 84.368 kg 84.8 kg Intake: IV Fluids 100 Output: Urine 200 ADLs: Meal Record Start: 12/03/18 07: 57 Freq: 09,13,18 Status: Active Protocol: Created 12/03/18 07:57 System (Rec: 12/03/18 07:57 System [id number]) Document 12/03/18 09:00 [id number] (Rec: 12/03/18 12:22 [id number]) Intake and Output Start: 12/03/18 01: 45 Freq: Status: Active Protocol: Created 12/03/18 01:45 System (Rec: 12/03/18 01:45 System [id number]) Intake and Output Start: 12/03/18 07: 57 Freq: Q1HR Status: Active Protocol: Created 12/03/18 07:57 System (Rec: 12/03/18 07:57 System [id number]) Document 12/03/18 11:00 [id number] (Rec: 12/03/18 12:32 [id number]) Eyes: No Scleral Icterus Ears/Nose/Mouth/Throat: NL Teeth, Lips, Gums Neck: NL Appearance and Movements; NL JVP Cardiovascular: NL Sounds; No Murmurs; No JVD Respiratory: Symmetrical Chest Expansion and Respiratory Effort Abdominal: NL Sounds; No Tenderness; No Distention Neurological: Alert and Oriented x 3 - Assessment Assessment: 78yo female with CVA presents with dyspnea secondary to NSTEMI, CHF, JEFF and presumed pneumonia. - Plan Consult Plan (MU): Palliative Plan: Long discussion with daughter and pt about goals of care. Pt doesn't want to suffer. Daughter is upset her mother is not doing well. MOLST discussed and pt doesn't want CPR or to be intubated but would be open to trial of vapotherm or BiPAP and no feeding tube. Pt is reluctant to have further work up of cardiac disease. She does not want to keep coming back to the hospital. Daughter doesn' t want to use SNF for placement or rehab preferring to care for mother at home. They would be interested in visiting nurse service and palliative care if offered in their area. Information about hospice given along a with a brochure. They live in [place] which is [facility] but could still use residence if interested. Since October admission pt has declined and will probably not return to her previous baseline. Her EF has decreased from 50-55% to 20-25% if she opts for no further intervention she will be eligible for hospice with her CHF/ CAD, JEFF and shortness of breath at rest. KPS 70%, PPS 60% - Time On Unit Date of Evaluation: 12/03/18 Hospice Consult Time in: 14:30 Hospice Consult Time Out: 16:00 Hospice Consult Time Total: 90 > 50% of Time Spend In Counseling or Coordinating Care: Yes
[2018-12-03 15:53] LABS: Troponin I 3.77 ng/mL (<0.04)
[2018-12-03] MEDS ORDERED: Atorvastatin* 80 MG TAB PO SCH (18:00)
--- NOTE | 2018-12-03 19:41 | HP ---
H&P (Free Text) History and Physical: The patient was seen by me today. See Consult from Valery Davenport [employer] 78 yo admitted a month ago with CVA, has residual hand weakness, but very functional. Had run out of medications for a week, saw primary MD this Saturday for DOMÍNGUEZ, neck arm ache. Meds renewed and steroids started for PMR Pt arrived very SOB, now found in CHF, new LBBB and newly depressed EF, new mod- severe MR. Ascorbic Acid TAB* [Vitamin C TAB*] 500 mg PO DAILY 10/20/18 [History Confirmed 12/03/18] Dapagliflozin 10 mg Tab (Nf) [Farxiga] 10 mg PO DAILY 10/20/18 [History Confirmed 12/03/18] FLUoxetine CAP* [Prozac CAP*] 80 mg PO BEDTIME 10/20/18 [History Confirmed 12/03] Gabapentin CAP(*) [Neurontin 300 CAP(*)] 300 mg PO BEDTIME 10/20/18 [History Confirmed 12/03/18] glipiZIDE TAB* [Glucotrol TAB*] 10 mg PO BID 10/20/18 [History Confirmed ] Aspirin 81 mg CHEW TAB* 81 mg PO DAILY #30 tab.chew 10/22/18 [Rx Confirmed 12/03] Atorvastatin* [Lipitor 80 MG*] 80 mg PO DAILY #30 tab 10/22/18 [Rx Confirmed ] Metoprolol Succinate XL TAB* [Toprol XL TAB*] 25 mg PO DAILY #30 tab.xl [Rx Confirmed 12/03/18] methylPREDNISolone TAB* [Medrol TAB*] 16 mg PO DAILY 12/03/18 [History Confirmed 12/03/18] Aspirin (Aspirin 81 Mg Chew Tab*) 81 mg PO DAILY [facility] Atorvastatin Calcium (Lipitor*) 80 mg PO QPM [facility] Last Admin: 12/03/18 18:21 Dose: 80 mg Clopidogrel Bisulfate (Plavix Tab*) 75 mg PO DAILY [facility] Last Admin: 12/03/18 10:20 Dose: 75 mg Dextrose (Dextrose 50% Vial 50 Ml*) 25 ml IV PUSH .FOR FS < 60 - SS PRN PRN Reason: FS < 60 Furosemide (Lasix Tab*) 20 mg PO DAILY [facility] Last Admin: 12/03/18 10:20 Dose: 20 mg Gabapentin (Neurontin Cap(*)) 300 mg PO BEDTIME [facility] Heparin Sodium (Porcine) (Heparin Vial(*)) 0 units IV .PER PROTOCOL DAISY Last Admin: 12/03/18 16:06 Dose: 2,000 units Heparin Sodium/Dextrose (Heparin Drip 25,000 Units(*)) 25,000 units in 500 mls @ 0 mls/hr IV PER RATE DAISY; Protocol Last Admin: 12/03/18 08:56 Dose: 16 mls/hr Cefepime HCl (Maxipime 1 Gm In Dextrose Duplex (*)) 1 gm in 50 mls @ 100 mls/ hr IV Q12H DAISY Last Admin: 12/03/18 10:20 Dose: 100 mls/hr Vancomycin HCl 750 mg/ Sodium (Chloride) 250 mls @ 166.667 mls/hr IVPB Q12HR [facility] Insulin Human Lispro (Humalog*) 0 units SUBCUT ACHS DAISY; Protocol Last Admin: 12/03/18 16:21 Dose: 3 units Metoprolol Succinate (Toprol Xl Tab*) 25 mg PO DAILY [facility] Last Admin: 12/03/18 08:20 Dose: 25 mg Morphine Sulfate (Morphine Inj (Syringe))*) 2 mg IV Q4H PRN PRN Reason: PAIN - MODERATE Last Admin: 12/03/18 19:36 Dose: 2 mg Pharmacy Consult (Vancomycin Per Pharmacy*) 1 note FOLLOW UP .VANC PER PHARMACY DAISY; Protocol Pharmacy Profile Note (Vancomycin Trough Check) 1 note FOLLOW UP ONCE ONE Stop: 12/05/18 08:31 Venlafaxine HCl (Effexor Xr Cap*) 37.5 mg PO BEDTIME [facility] Vital Signs Temp 97.8 F 12/03/18 19:23 Pulse 81 12/03/18 18:00 Resp 26 12/03/18 19:36 BP 119/78 12/03/18 18:00 Pulse Ox 92 12/03/18 18:00 Intake & Output 12/03/18 12/03/18 12/04/18 04:59 16:59 04:59 Intake Total 100 400 350.8 Output Total 200 Balance 100 200 350.8 Weight 186 lb 186 lb 15.232 oz Intake: IV Fluids 100 20.8 ABX - CEFEPIME 4.8 ABX - VANCOMYCIN 16 IVPB 330 ABX - CEFEPIME 55 ABX - VANCOMYCIN 275 Oral 400 Output: Urine 200 Obese, tachypnic, lying 80 degrees Crackles diffusely. Real. LDL cholesterol 223 10/21/18. Laboratory Results - last 24 hr 12/03/18 12/03/18 12/03/18 02:48 02:54 02:54 WBC 15.9 H RBC 4.71 Hgb 13.7 Hct 42 MCV 89 MCH 29 MCHC 33 RDW 14 Plt Count 367 MPV 7.9 Neut % (Auto) 91.4 Lymph % (Auto) 4.3 Jennings % (Auto) 4.1 Eos % (Auto) 0.0 Baso % (Auto) 0.2 Absolute Neuts (auto) 14.5 H Absolute Lymphs (auto) 0.7 L Absolute Monos (auto) 0.7 Absolute Eos (auto) 0.0 Absolute Basos (auto) 0.0 Absolute Nucleated RBC 0.0 Nucleated RBC % 0.0 INR (Anticoag Therapy) APTT Patient Temperature ABG pH ABG pH (Temp Correct) ABG pCO2 ABG pCO2 (Temp Corrct ABG pO2 ABG pO2 (Temp Correct ABG HCO3 ABG O2 Saturation ABG Base Excess Respiration Rate O2 Delivery Device Ventilator Type Vent Mode FiO2 Inspiratory Time PEEP Pressure Support Pressure Control EPAP IPAP BiPAP Sodium 133 L Potassium 4.2 Chloride 97 L Carbon Dioxide 23 Anion Gap 13 H BUN 61 H Creatinine 1.68 H Est GFR ( Amer) 35.8 Est GFR (Non-Af Amer) 29.6 BUN/Creatinine Ratio 36.3 H Glucose 380 H POC Glucose (mg/dL) Lactic Acid Calcium 9.6 Total Bilirubin 0.70 AST 15 ALT 21 Alkaline Phosphatase 89 Total Creatine Kinase 43 CK-MB (CK-2) 2.9 Troponin I 2.45 H* C-Reactive Protein B-Natriuretic Peptide > 1300 H Total Protein 7.4 Albumin 3.8 Globulin 3.6 Albumin/Globulin Ratio 1.1 12/03/18 12/03/18 12/03/18 02:54 02:54 03:25 WBC RBC Hgb Hct MCV MCH MCHC RDW Plt Count MPV Neut % (Auto) Lymph % (Auto) Jennings % (Auto) Eos % (Auto) Baso % (Auto) Absolute Neuts (auto) Absolute Lymphs (auto) Absolute Monos (auto) Absolute Eos (auto) Absolute Basos (auto) Absolute Nucleated RBC Nucleated RBC % INR (Anticoag Therapy) 1.23 H APTT Patient Temperature Not Reportable ABG pH 7.45 ABG pH (Temp Correct) Not Reportable ABG pCO2 32 L ABG pCO2 (Temp Corrct Not Reportable ABG pO2 59 L* ABG pO2 (Temp Correct Not Reportable ABG HCO3 23.9 ABG O2 Saturation 91.8 L ABG Base Excess -1.0 Respiration Rate Not Reportable O2 Delivery Device n/c Ventilator Type Not Reportable Vent Mode Not Reportable FiO2 29 Inspiratory Time Not Reportable PEEP Not Reportable Pressure Support Not Reportable Pressure Control Not Reportable EPAP Not Reportable IPAP Not Reportable BiPAP Not Reportable Sodium Potassium Chloride Carbon Dioxide Anion Gap BUN Creatinine Est GFR ( Amer) Est GFR (Non-Af Amer) BUN/Creatinine Ratio Glucose POC Glucose (mg/dL) Lactic Acid 2.0 Calcium Total Bilirubin AST ALT Alkaline Phosphatase Total Creatine Kinase CK-MB (CK-2) Troponin I C-Reactive Protein B-Natriuretic Peptide Total Protein Albumin Globulin Albumin/Globulin Ratio 12/03/18 12/03/18 12/03/18 06:41 08:20 08:27 WBC RBC Hgb Hct MCV MCH MCHC RDW Plt Count MPV Neut % (Auto) Lymph % (Auto) Jennings % (Auto) Eos % (Auto) Baso % (Auto) Absolute Neuts (auto) Absolute Lymphs (auto) Absolute Monos (auto) Absolute Eos (auto) Absolute Basos (auto) Absolute Nucleated RBC Nucleated RBC % INR (Anticoag Therapy) APTT 33.8 Patient Temperature ABG pH ABG pH (Temp Correct) ABG pCO2 ABG pCO2 (Temp Corrct ABG pO2 ABG pO2 (Temp Correct ABG HCO3 ABG O2 Saturation ABG Base Excess Respiration Rate O2 Delivery Device Ventilator Type Vent Mode FiO2 Inspiratory Time PEEP Pressure Support Pressure Control EPAP IPAP BiPAP Sodium Potassium Chloride Carbon Dioxide Anion Gap BUN Creatinine Est GFR ( Amer) Est GFR (Non-Af Amer) BUN/Creatinine Ratio Glucose POC Glucose (mg/dL) 294 H Lactic Acid Calcium Total Bilirubin AST ALT Alkaline Phosphatase Total Creatine Kinase 43 CK-MB (CK-2) 3.5 Troponin I 2.76 H* C-Reactive Protein 110.79 H B-Natriuretic Peptide Total Protein Albumin Globulin Albumin/Globulin Ratio 12/03/18 12/03/18 12/03/18 11:43 11:54 15:15 WBC RBC Hgb Hct MCV MCH MCHC RDW Plt Count MPV Neut % (Auto) Lymph % (Auto) Jennings % (Auto) Eos % (Auto) Baso % (Auto) Absolute Neuts (auto) Absolute Lymphs (auto) Absolute Monos (auto) Absolute Eos (auto) Absolute Basos (auto) Absolute Nucleated RBC Nucleated RBC % INR (Anticoag Therapy) APTT 45.8 H Patient Temperature ABG pH ABG pH (Temp Correct) ABG pCO2 ABG pCO2 (Temp Corrct ABG pO2 ABG pO2 (Temp Correct ABG HCO3 ABG O2 Saturation ABG Base Excess Respiration Rate O2 Delivery Device Ventilator Type Vent Mode FiO2 Inspiratory Time PEEP Pressure Support Pressure Control EPAP IPAP BiPAP Sodium Potassium Chloride Carbon Dioxide Anion Gap BUN Creatinine Est GFR ( Amer) Est GFR (Non-Af Amer) BUN/Creatinine Ratio Glucose POC Glucose (mg/dL) 174 H Lactic Acid Calcium Total Bilirubin AST ALT Alkaline Phosphatase Total Creatine Kinase CK-MB (CK-2) Troponin I 3.86 H* C-Reactive Protein B-Natriuretic Peptide Total Protein Albumin Globulin Albumin/Globulin Ratio 12/03/18 12/03/18 15:15 16:01 WBC RBC Hgb Hct MCV MCH MCHC RDW Plt Count MPV Neut % (Auto) Lymph % (Auto) Jennings % (Auto) Eos % (Auto) Baso % (Auto) Absolute Neuts (auto) Absolute Lymphs (auto) Absolute Monos (auto) Absolute Eos (auto) Absolute Basos (auto) Absolute Nucleated RBC Nucleated RBC % INR (Anticoag Therapy) APTT Patient Temperature ABG pH ABG pH (Temp Correct) ABG pCO2 ABG pCO2 (Temp Corrct ABG pO2 ABG pO2 (Temp Correct ABG HCO3 ABG O2 Saturation ABG Base Excess Respiration Rate O2 Delivery Device Ventilator Type Vent Mode FiO2 Inspiratory Time PEEP Pressure Support Pressure Control EPAP IPAP BiPAP Sodium Potassium Chloride Carbon Dioxide Anion Gap BUN Creatinine Est GFR ( Amer) Est GFR (Non-Af Amer) BUN/Creatinine Ratio Glucose POC Glucose (mg/dL) 189 H Lactic Acid Calcium Total Bilirubin AST ALT Alkaline Phosphatase Total Creatine Kinase CK-MB (CK-2) Troponin I 3.77 H* C-Reactive Protein B-Natriuretic Peptide Total Protein Albumin Globulin Albumin/Globulin Ratio *[facility]* [place] [address] Fax #: [phone] Transthoracic Echocardiogram Patient: Laura Peacock : 1940 Study Date: 12/03/2018 Summary: - Left ventricle: The cavity size is mildly dilated. Wall thickness is mildly increased. Systolic function is severely reduced. The estimated ejection fraction is 20-25%. Hypokinesis of the entireanteroseptal and inferoseptal myocardium. Hypokinesis of the entire inferior myocardium. Doppler parameters are consistent with elevated ventricular end-diastolic filling pressure. - Right ventricle: Systolic function is mildly reduced. - Mitral valve: There is moderate regurgitation, directed posteriorly and toward the free wall. - Aortic valve: The findings are consistent with mild stenosis. - Tricuspid valve: There is mild regurgitation. A/P 78 yo with newly depressed EF c/w 5 weeks ago, new LBBB, elevated troponins and CAD risks. The patient had declined cardiac catheterization last admission, I discussed why , she stated because she doesn't really like medicine, coming to the hospital, wasn't at that time interested in a stent/surgery if recommended. Currently CHF too profound to cath now. I suspect the low EF is a combination of ischemia and dysychrony (LBBB). If the patient would undergo intervention and/or BiV pacer, I recommend cardiac cath when her CHF has improved and referral for BiV pacer. Her CHF management is complicated by severe elevation in BUN, this is in the setting of newly added Farxiga (off now). Her elevated CRP, also new c/w [place] noted, uncertain etiology, defer evaluation to hospitalists. Myocarditis is in a large differential, but normal CK's reassuring in this aspect. Continue with BB and diuresis. With recent Farxiga and AKD, ACEI may need to be held off on for now based on discussions with pharmacy, ? endocrine or renal have knowledge in this area.
[2018-12-03] MEDS ORDERED: Venlafaxine EXT RELEASE CAP* 37.5 MG PO SCH (21:00)
[2018-12-03] MEDS ORDERED: FLUoxetine CAP* 20 MG PO SCH (21:00)
[2018-12-03] MEDS ORDERED: Gabapentin CAP(*) 300 MG PO SCH (21:00)
[2018-12-03] MEDS: Vancomycin(*) 750 MG in NS 0.9% 250 ML* 250 ML IVPB SCH (21:40)
[2018-12-04 05:13] LABS: ABS Basophils 0.1 10^3/ul (0-0.2); ABS Eosinophils 0.1 10^3/ul (0-0.6); ABS Lymphocytes 1.3 10^3/ul (1.0-4.8); ABS Monocytes 0.9 10^3/ul (0-0.8); ABS Neutrophils 10.1 10^3/ul (1.5-7.7); Eosinophil % 0.4 %; Hematocrit 37 % (35-47); Hemoglobin 12.3 g/dL (12.0-16.0); Lymphocyte % 10.6 %; Mean Corpuscular HGB Conc 34 g/dL (31-36); Mean Corpuscular Hemoglobin 29 pg (27-31); Mean Corpuscular Volume 87 fL (80-97); Nucleated Red Blood Cells % 0.1; Platelet Count 330 10^3/uL (150-450); Red Blood Count 4.22 10^6 /uL (3.70-4.87); Red Cell Distribution Width 14 % (10-15); White Blood Count 12.4 10^3/uL (3.5-10.8)
[2018-12-04 05:32] LABS: BUN/Creatinine Ratio 43.2 (8-20); Calcium 9.1 mg/dL (8.6-10.3); EGFR African American 42.1 (>60); EGFR Non-African American 34.8 (>60); Potassium 3.2 mmol/L (3.5-5.0)
[2018-12-04] MEDS ORDERED: Aspirin 81 mg CHEW TAB* 81 MG TAB.CHEW PO SCH (09:00)
[2018-12-04] MEDS ORDERED: Potassium Chlor TAB* 10 MEQ TAB.ER PO ONE (09:22)
[2018-12-04] MEDS: Insulin LISPRO* 1 UNITS UNIT SUBCUT SCH ×2 (09:41→11:59)
[2018-12-04 09:42] LABS: Magnesium 2.1 mg/dL (1.9-2.7)
[2018-12-04] MEDS: Cefepime 1 GM in Dextrose(*) 1 GM/50 ML BAG IV SCH (10:14)
[2018-12-04] MEDS: Clopidogrel TAB* 75 MG PO SCH (10:16)
[2018-12-04] MEDS: Furosemide TAB* 20 MG PO SCH (10:17)
--- NOTE | 2018-12-04 10:18 | PN ---
<Valery Davenport - Last Filed: 12/04/18 10:13> Subjective Date of Service: 12/04/18 - SHF, LBBB, Prior NE Interval History: No events last night, patient is still short of breath, no c/o chest pain, arm pain. No palpations. She states she has thought about goals of care and at this time would like to proceed with full measures ( full code) evaluation for C with potential for intervention. She adds she wants to know she did everything that she could and understands the risks involved. Medications Active Medications: Aspirin (Aspirin 81 Mg Chew Tab*) 81 mg PO DAILY [facility] Atorvastatin Calcium (Lipitor*) 80 mg PO QPM [facility] Last Admin: 12/03/18 18:21 Dose: 80 mg Clopidogrel Bisulfate (Plavix Tab*) 75 mg PO DAILY [facility] Last Admin: 12/03/18 10:20 Dose: 75 mg Dextrose (Dextrose 50% Vial 50 Ml*) 25 ml IV PUSH .FOR FS < 60 - SS PRN PRN Reason: FS < 60 Furosemide (Lasix Tab*) 20 mg PO DAILY [facility] Last Admin: 12/03/18 10:20 Dose: 20 mg Gabapentin (Neurontin Cap(*)) 300 mg PO BEDTIME DAISY Last Admin: 12/03/18 21:40 Dose: 300 mg Heparin Sodium (Porcine) (Heparin Vial(*)) 0 units IV .PER PROTOCOL [facility] Last Admin: 12/03/18 22:37 Dose: 4,000 units Heparin Sodium/Dextrose (Heparin Drip 25,000 Units(*)) 25,000 units in 500 mls @ 0 mls/hr IV PER RATE [facility]; Protocol Last Admin: 12/03/18 08:56 Dose: 16 mls/hr Cefepime HCl (Maxipime 1 Gm In Dextrose Duplex (*)) 1 gm in 50 mls @ 100 mls/ hr IV Q12H [facility] Last Admin: 12/03/18 20:56 Dose: 100 mls/hr Vancomycin HCl 750 mg/ Sodium (Chloride) 250 mls @ 166.667 mls/hr IVPB Q12HR [facility] Last Admin: 12/03/18 21:40 Dose: 166.667 mls/hr Insulin Human Lispro (Humalog*) 0 units SUBCUT ACHS [facility]; Protocol Last Admin: 12/04/18 09:41 Dose: 6 units Metoprolol Succinate (Toprol Xl Tab*) 25 mg PO DAILY [facility] Last Admin: 12/03/18 08:20 Dose: 25 mg Morphine Sulfate (Morphine Inj (Syringe))*) 2 mg IV Q4H PRN PRN Reason: PAIN - MODERATE Last Admin: 12/03/18 19:36 Dose: 2 mg Pharmacy Consult (Vancomycin Per Pharmacy*) 1 note FOLLOW UP .VANC PER PHARMACY DAISY; Protocol Pharmacy Profile Note (Vancomycin Trough Check) 1 note FOLLOW UP ONCE ONE Stop: 12/05/18 08:31 Venlafaxine HCl (Effexor Xr Cap*) 37.5 mg PO BEDTIME [facility] Last Admin: 12/03/18 21:40 Dose: 37.5 mg Objective Vital Signs: Temp Pulse Resp BP Pulse Ox 98.5 F 90 28 106/68 93 12/04/18 08:42 12/04/18 08:42 12/04/18 08:42 12/04/18 08:42 12/04/18 08:42 Oxygen Devices in Use Now: Nasal Cannula Appearance: Sitting upright in bed. A+O x3. + tachypenic. Ears/Nose/Mouth/Throat: NL Teeth, Lips, Gums, Clear Oropharnyx Neck: NL Appearance and Movements; NL JVP, Trachea Midline, - - + JVD Respiratory: - - + inspiratory rales. Cardiovascular: No Edema, - - Normal S1,S2 RRR + murmur. Extremities: No Edema Skin: No Rash or Ulcers Neurological: Alert and Oriented x 3 Lines/Tubes/Other Access: Clean, Dry and Intact Peripheral IV Laboratory Results: 12/04/18 04:26 12/04/18 04:26 INR (Anticoag Therapy) 1.23 (0.82-1.09) H 12/03/18 02:54 APTT 71.4 seconds (26.0-38.0) H 12/04/18 04:26 Total Bilirubin 0.70 mg/dL (0.2-1.0) 12/03/18 02:54 AST 15 U/L (13-39) 12/03/18 02:54 ALT 21 U/L (7-52) 12/03/18 02:54 Alkaline Phosphatase 89 U/L (34-104) 12/03/18 02:54 CK-MB (CK-2) 3.5 ng/mL (0.6-6.3) 12/03/18 06:41 B-Natriuretic Peptide > 1300 pg/mL (<=100) H 12/03/18 02:48 Total Protein 7.4 g/dL (6.4-8.9) 12/03/18 02:54 Albumin 3.8 g/dL (3.2-5.2) 12/03/18 02:54 Globulin 3.6 g/dL (2-4) 12/03/18 02:54 Albumin/Globulin Ratio 1.1 (1-3) 12/03/18 02:54 12/03/18 12/03/18 12/03/18 02:54 06:41 11:43 Troponin I 2.45 H* 2.76 H* 3.86 H* 12/03/18 15:15 Troponin I 3.77 H* Laboratory Results - last 24 hr 12/03/18 12/03/18 12/03/18 08:20 11:43 11:54 WBC RBC Hgb Hct MCV MCH MCHC RDW Plt Count MPV Neut % (Auto) Lymph % (Auto) Ransom % (Auto) Eos % (Auto) Baso % (Auto) Absolute Neuts (auto) Absolute Lymphs (auto) Absolute Monos (auto) Absolute Eos (auto) Absolute Basos (auto) Absolute Nucleated RBC Nucleated RBC % APTT Sodium Potassium Chloride Carbon Dioxide Anion Gap BUN Creatinine Est GFR ( Amer) Est GFR (Non-Af Amer) BUN/Creatinine Ratio Glucose POC Glucose (mg/dL) 294 H 174 H Calcium Magnesium Troponin I 3.86 H* 12/03/18 12/03/18 12/03/18 15:15 15:15 16:01 WBC RBC Hgb Hct MCV MCH MCHC RDW Plt Count MPV Neut % (Auto) Lymph % (Auto) Ransom % (Auto) Eos % (Auto) Baso % (Auto) Absolute Neuts (auto) Absolute Lymphs (auto) Absolute Monos (auto) Absolute Eos (auto) Absolute Basos (auto) Absolute Nucleated RBC Nucleated RBC % APTT 45.8 H Sodium Potassium Chloride Carbon Dioxide Anion Gap BUN Creatinine Est GFR ( Amer) Est GFR (Non-Af Amer) BUN/Creatinine Ratio Glucose POC Glucose (mg/dL) 189 H Calcium Magnesium Troponin I 3.77 H* 12/03/18 12/03/18 12/04/18 20:27 22:04 04:26 WBC 12.4 H RBC 4.22 Hgb 12.3 Hct 37 MCV 87 MCH 29 MCHC 34 RDW 14 Plt Count 330 MPV 8.0 Neut % (Auto) 81.4 Lymph % (Auto) 10.6 Ransom % (Auto) 7.2 Eos % (Auto) 0.4 Baso % (Auto) 0.4 Absolute Neuts (auto) 10.1 H Absolute Lymphs (auto) 1.3 Absolute Monos (auto) 0.9 H Absolute Eos (auto) 0.1 Absolute Basos (auto) 0.1 Absolute Nucleated RBC 0.0 Nucleated RBC % 0.1 APTT 43.9 H Sodium Potassium Chloride Carbon Dioxide Anion Gap BUN Creatinine Est GFR ( Amer) Est GFR (Non-Af Amer) BUN/Creatinine Ratio Glucose POC Glucose (mg/dL) 215 H Calcium Magnesium Troponin I 12/04/18 12/04/18 12/04/18 04:26 04:26 08:03 WBC RBC Hgb Hct MCV MCH MCHC RDW Plt Count MPV Neut % (Auto) Lymph % (Auto) Ransom % (Auto) Eos % (Auto) Baso % (Auto) Absolute Neuts (auto) Absolute Lymphs (auto) Absolute Monos (auto) Absolute Eos (auto) Absolute Basos (auto) Absolute Nucleated RBC Nucleated RBC % APTT 71.4 H Sodium 136 Potassium 3.2 L Chloride 100 L Carbon Dioxide 23 Anion Gap 13 H BUN 63 H Creatinine 1.46 H Est GFR ( Amer) 42.1 Est GFR (Non-Af Amer) 34.8 BUN/Creatinine Ratio 43.2 H Glucose 182 H POC Glucose (mg/dL) 215 H Calcium 9.1 Magnesium 2.1 Troponin I Diagnostic Imaging: *[facility] [place] [address] Fax #: [phone] Transthoracic Echocardiogram Patient: Laura Peacock : 1940 Study Date: 12/03/2018 Age: 78 Gender: F HR: 83 bpm Height: 65 in /165.1 cm BSA: 1.92 m^2 Weight: 185.6 lb /84.4 kg BMI: 31 kg/m^2 *Java Integration Developer: * Melly Martinez RDMETHODIST [facility] *Referring Physician: * Nicki RoweReading Physician: Mirta Calderon MD Indications: Chest Pain, unspecified. Congestive Heart Failure. History: Left bundle branch block. Aortic stenosis. Risk factors: Hypertension. Diabetes mellitus. Conclusions Summary: - Left ventricle: The cavity size is mildly dilated. Wall thickness is mildly increased. Systolic function is severely reduced. The estimated ejection fraction is 20-25%. Hypokinesis of the entireanteroseptal and inferoseptal myocardium. Hypokinesis of the entireinferior myocardium. Doppler parameters are consistent with elevated ventricular end-diastolic filling pressure. - Right ventricle: Systolic function is mildly reduced. - Mitral valve: There is moderate regurgitation, directed posteriorly and toward the free wall. - Aortic valve: The findings are consistent with mild stenosis. The mean systolic gradient is 4.0 mm Hg. The LVOT to aortic valve VTI ratio is 0.5. The valve area by the velocity-time integral method is 1.60 cm^2. The valve area by the peak velocity method is 1.80 cm^2. - Tricuspid valve: There is mild regurgitation. - Pulmonary arteries: Systolic pressure is mildly to moderately This report is only to be considered final once signed by the Provider(s) as displayed in the "<Electronically Signed by >" field (s). Absence of a signature indicates the report is in a draft status and still needs to be finalized. In the event this document was created by someone other than the signing Provider, the individual initiating the document will be listed in the "Entered by:" or "Dictated by:" crow. EKG Data: 12/03/2018; Sinus rhythm rate 83 with LBBB Telemetry reviewed ; LBBB rate 60-70's no VT Assessment/Plan #1 Newly diagnosed severe LV dysfunction with new LBBB and Troponinema. Troponin peaked 12/03/2018 at 3.86. No further c/o chest pain or arm pain which started Saturday. LVEF was 50-55% with hypokinesis involving basalinferior myocardium 10/[address] depression, Trop was normal at that time which was when she suffered from a non hemorrhagic CVA. She declined ischemic eval. Represented yesterday with c/o chest pain and troponin elevation with now hypokinesis involving entire anteroseptal and inferoseptal myocardium. LVEF now 20-25%. She is decompensated and has been getting gentle diuresis. renal function improving. INR elevation is likely due to hepatic congestion. She is now agreeable to C knowing it may result in PCI. She is now willing to be full code and proceed with full measures. Her daughter is aware and present. I personally spoke with Dr. Benson Loco who states patient is to high risk to have C with potential intervention done here due to severe LV dysfunction and agrees with transferring patient to [facility]. I spoke with Dr. Ohara who agreed patient should be transferred to [facility]. On Toprol, ASA, Plavix, IV heparin and statin therapy. no recurrent c/o chest pain. #2 Recent non hemmorhagic CVA 10/21/2018. Completed 30 day course of ASA and Plavix therapy and was only on ASA when she presented. has a h/o falls but adds she has had increased falls the past week. On ASA and statin therapy. I have asked primary team to send neuro conslt and brain MRI to [facility] from October admission. #3 Newly diagnosed PMR; now on steroid therapy. #4 JEFF; improving. creat today 1.46. ? cardiorenal. was treated for possible pneumonia. #5 Dispositon pending course. To be transferred to [facility]. Patient agreeable. I spoke with primary team who is aware patient now is agreeable to being full code. Dr. Simpson was updated and agrees with plan of care. Attending: Shelly Sipmson <Shelly Simpson - Last Filed: 12/04/18 11:15> Medications Active Medications: Aspirin (Aspirin 81 Mg Chew Tab*) 81 mg PO DAILY [facility] Last Admin: 12/04/18 10:17 Dose: 81 mg Atorvastatin Calcium (Lipitor*) 80 mg PO QPM [facility] Last Admin: 12/03/18 18:21 Dose: 80 mg Clopidogrel Bisulfate (Plavix Tab*) 75 mg PO DAILY [facility] Last Admin: 12/04/18 10:16 Dose: 75 mg Dextrose (Dextrose 50% Vial 50 Ml*) 25 ml IV PUSH .FOR FS < 60 - SS PRN PRN Reason: FS < 60 Furosemide (Lasix Tab*) 20 mg PO DAILY [facility] Last Admin: 12/04/18 10:17 Dose: 20 mg Gabapentin (Neurontin Cap(*)) 300 mg PO BEDTIME [facility] Last Admin: 12/03/18 21:40 Dose: 300 mg Heparin Sodium (Porcine) (Heparin Vial(*)) 0 units IV .PER PROTOCOL [facility] Last Admin: 12/03/18 22:37 Dose: 4,000 units Heparin Sodium/Dextrose (Heparin Drip 25,000 Units(*)) 25,000 units in 500 mls @ 0 mls/hr IV PER RATE [facility]; Protocol Last Admin: 12/03/18 08:56 Dose: 16 mls/hr Cefepime HCl (Maxipime 1 Gm In Dextrose Duplex (*)) 1 gm in 50 mls @ 100 mls/ hr IV Q12H [facility] Last Admin: 12/04/18 10:14 Dose: 100 mls/hr Vancomycin HCl 750 mg/ Sodium (Chloride) 250 mls @ 166.667 mls/hr IVPB Q12HR [facility] Last Admin: 12/03/18 21:40 Dose: 166.667 mls/hr Insulin Glargine (Lantus(*)) 10 units SUBCUT Q24H [facility] Insulin Human Lispro (Humalog*) 0 units SUBCUT ACHS [facility]; Protocol Last Admin: 12/04/18 09:41 Dose: 6 units Metoprolol Succinate (Toprol Xl Tab*) 25 mg PO DAILY [facility] Last Admin: 12/04/18 10:21 Dose: 25 mg Morphine Sulfate (Morphine Inj (Syringe))*) 2 mg IV Q4H PRN PRN Reason: PAIN - MODERATE Last Admin: 12/03/18 19:36 Dose: 2 mg Pharmacy Consult (Vancomycin Per Pharmacy*) 1 note FOLLOW UP .VANC PER PHARMACY [facility]; Protocol Pharmacy Profile Note (Vancomycin Trough Check) 1 note FOLLOW UP ONCE ONE Stop: 12/05/18 08:31 Prednisone (Deltasone Tab*) 30 mg PO DAILY [facility] Venlafaxine HCl (Effexor Xr Cap*) 37.5 mg PO BEDTIME [facility] Last Admin: 12/03/18 21:40 Dose: 37.5 mg Objective Vital Signs: Temp Pulse Resp BP Pulse Ox 98.5 F 90 28 106/68 93 12/04/18 08:42 12/04/18 08:42 12/04/18 08:42 12/04/18 08:42 12/04/18 08:42 Laboratory Results: 12/04/18 04:26 12/04/18 04:26 INR (Anticoag Therapy) 1.23 (0.82-1.09) H 12/03/18 02:54 APTT 71.4 seconds (26.0-38.0) H 12/04/18 04:26 Total Bilirubin 0.70 mg/dL (0.2-1.0) 12/03/18 02:54 AST 15 U/L (13-39) 12/03/18 02:54 ALT 21 U/L (7-52) 12/03/18 02:54 Alkaline Phosphatase 89 U/L (34-104) 12/03/18 02:54 CK-MB (CK-2) 3.5 ng/mL (0.6-6.3) 12/03/18 06:41 B-Natriuretic Peptide > 1300 pg/mL (<=100) H 12/03/18 02:48 Total Protein 7.4 g/dL (6.4-8.9) 12/03/18 02:54 Albumin 3.8 g/dL (3.2-5.2) 12/03/18 02:54 Globulin 3.6 g/dL (2-4) 12/03/18 02:54 Albumin/Globulin Ratio 1.1 (1-3) 12/03/18 02:54 12/03/18 12/03/18 12/03/18 02:54 06:41 11:43 Troponin I 2.45 H* 2.76 H* 3.86 H* 12/03/18 12/04/18 15:15 10:02 Troponin I 3.77 H* 1.93 H* Assessment/Plan 12.04.2018 11:12 am: pt seen and examined. Pt's clinical condition and plan of care d/w PHYSICIAN Aisha Davenport. Pt with severe CMP EF 25% and new LBBB. CHF. High risk for cardiac cath/ intervention at our facility. Agree to be transferred to [facility] for further higher care in a high risk pt.
[2018-12-04] MEDS: Metoprolol Succinate XL TAB* 25 MG PO SCH (10:21)
--- NOTE | 2018-12-04 10:35 | PN ---
Subjective Date of Service: 12/04/18 Interval History: Patient has dyspnea at rest, but was able to walk to bathroom. She is conversant. Denies chest, abdominal pain. Denies peripheral edema. Stroke residual LT facial droop, LT arm weakness. Family History: Unchanged from Admission Social History: Unchanged from Admission Past Medical History: Unchanged from Admission Objective Active Medications: Aspirin (Aspirin 81 Mg Chew Tab*) 81 mg PO DAILY [facility] Atorvastatin Calcium (Lipitor*) 80 mg PO QPM [facility] Last Admin: 12/03/18 18:21 Dose: 80 mg Clopidogrel Bisulfate (Plavix Tab*) 75 mg PO DAILY [facility] Last Admin: 12/03/18 10:20 Dose: 75 mg Dextrose (Dextrose 50% Vial 50 Ml*) 25 ml IV PUSH .FOR FS < 60 - SS PRN PRN Reason: FS < 60 Furosemide (Lasix Tab*) 20 mg PO DAILY [facility] Last Admin: 12/03/18 10:20 Dose: 20 mg Gabapentin (Neurontin Cap(*)) 300 mg PO BEDTIME [facility] Last Admin: 12/03/18 21:40 Dose: 300 mg Heparin Sodium/Dextrose (Heparin Drip 25,000 Units(*)) 25,000 units in 500 mls @ 0 mls/hr IV PER RATE [facility]; Protocol Last Admin: 12/03/18 08:56 Dose: 16 mls/hr Cefepime HCl (Maxipime 1 Gm In Dextrose Duplex (*)) 1 gm in 50 mls @ 100 mls/ hr IV Q12H [facility] Last Admin: 12/03/18 20:56 Dose: 100 mls/hr Vancomycin HCl 750 mg/ Sodium (Chloride) 250 mls @ 166.667 mls/hr IVPB Q12HR [facility] Last Admin: 12/03/18 21:40 Dose: 166.667 mls/hr Insulin Human Lispro (Humalog*) 0 units SUBCUT ACHS [facility]; Protocol Last Admin: 12/04/18 09:41 Dose: 6 units Metoprolol Succinate (Toprol Xl Tab*) 25 mg PO DAILY [facility] Last Admin: 12/03/18 08:20 Dose: 25 mg Morphine Sulfate (Morphine Inj (Syringe))*) 2 mg IV Q4H PRN PRN Reason: PAIN - MODERATE Last Admin: 12/03/18 19:36 Dose: 2 mg Venlafaxine HCl (Effexor Xr Cap*) 37.5 mg PO BEDTIME [facility] Last Admin: 12/03/18 21:40 Dose: 37.5 mg Vital Signs - 8 hr 12/04/18 12/04/18 03:29 08:42 Temperature 37.0 C 36.9 C Pulse Rate 86 90 Respiratory 16 28 Rate Blood Pressure 112/71 106/68 (mmHg) O2 Sat by Pulse 94 93 Oximetry Oxygen Devices in Use Now: Nasal Cannula Appearance: alert, mild respiratory distress Eyes: No Scleral Icterus Ears/Nose/Mouth/Throat: NL Teeth, Lips, Gums Neck: NL Appearance and Movements; NL JVP Respiratory: Clear to Auscultation Cardiovascular: RRR, No Edema, - - 2/6 systolic murmur, LUSB Abdominal: NL Sounds; No Tenderness; No Distention Lymphatic: No Cervical Adenopathy Skin: No Rash or Ulcers Neurological: Alert and Oriented x 3 Lines/Tubes/Other Access: Clean, Dry and Intact Peripheral IV Nutrition: Taking PO's Result Diagrams: 12/04/18 04:26 12/04/18 04:26 Additional Lab and Data: Laboratory Tests 12/03/18 12/03/18 12/03/18 15:15 16:01 20:27 POC Glucose (mg/dL) 189 H 215 H Magnesium Troponin I 3.77 H* 12/04/18 12/04/18 04:26 08:03 POC Glucose (mg/dL) 215 H Magnesium 2.1 Troponin I Microbiology and Other Data: Microbiology 12/03/18 09:00 Aerobic Blood Culture - Preliminary Blood Venous No Growth Day 1 Anaerobic Blood Culture - Preliminary No Growth Day 1 12/03/18 07:35 Nasal Screen MRSA (PCR) - Final Nasal Mrsa Not Detected Diagnostic Imaging: Echo: EF 20%, mild , moderate MR, anteriorseptal and apical akinesis Assess/Plan/Problems-Billing Assessment: 78 year old woman with recent stroke, here with new onset systolic heart failure , new MR, troponin elevation - Patient Problems (1) Acute systolic CHF (congestive heart failure), NYHA class 4 Current Visit: Yes Status: Acute Priority: High Code(s): I50.21 - ACUTE SYSTOLIC (CONGESTIVE) HEART FAILURE SNOMED Code(s): 880556570 Comment: -Discussed case with Valery Qureshi NP, Dr. Simpson -They have arranged transfer to [facility], Dr. Ohara's service -Will need PET or MRI myocardial viability study -Will need cath, likely stent. (2) Myocardial infarction acute Current Visit: Yes Status: Acute Priority: Medium Code(s): I21.9 - ACUTE MYOCARDIAL INFARCTION, UNSPECIFIED SNOMED Code(s): 75633889 Comment: -Patient appears to have recent VT or ongoing ischemia, with ischemic cardiomyopathy -Continue IV heparin, aspirin, metoprolol, morphine (3) Hospital-acquired pneumonia Current Visit: Yes Status: Acute Priority: Medium Code(s): J18.9 - PNEUMONIA, UNSPECIFIED ORGANISM; Y95 - NOSOCOMIAL CONDITION SNOMED Code(s): 595714854 Comment: -Chest X-ray could be compatible with pulmonary edema vs pneumonia -Started on cefipime, vanco yesterday due to elevated WBC, hypoxia, CXR findings (4) Diabetes mellitus type 2 in obese Current Visit: No Status: Acute Priority: Medium Code(s): E11.69 - TYPE 2 DIABETES MELLITUS WITH OTHER SPECIFIED COMPLICATION; E66.9 - OBESITY, UNSPECIFIED SNOMED Code(s): 72263005 Comment: -continue sliding scale insulin, farxiga on hold due to JEFF, starting Lantus due to hyperglycemia -patient needs better control of her diabetes in the setting of this likely prior VT and subacute CVA (5) Polymyalgia rheumatica Current Visit: Yes Status: Acute Priority: Medium Code(s): M35.3 - POLYMYALGIA RHEUMATICA SNOMED Code(s): 00813592 Comment: -Patient was admitted on medrol, switching to oral prednisone -This will elevate blood sugars further (6) Hypokalemia Current Visit: Yes Status: Acute Priority: Medium Code(s): E87.6 - HYPOKALEMIA SNOMED Code(s): 97207130 Comment: -Received supplementation this AM, would recheck in AM Status and Disposition: plan is transfer to [facility], due to severe heart failure
[2018-12-04 10:54] LABS: Troponin I 1.93 ng/mL (<0.04)
[2018-12-04] MEDS ORDERED: predniSONE TAB* 10 MG PO SCH (11:00)
[2018-12-04] MEDS ORDERED: Insulin GLARGINE(*) 1 UNITS UNIT SUBCUT SCH (11:00)
[2018-12-04] MEDS: Heparin DRIP 25,000 UNITS(*) 25,000 UNITS/500 ML BAG IV SCH (11:10)
[2018-12-04] MEDS: Vancomycin(*) 750 MG in NS 0.9% 250 ML* 250 ML IVPB SCH (11:12)
[2018-12-04] MEDS: Heparin VIAL(*) 5000 UNITS/ML VIAL (FIVE THOUSAND) IV SCH (12:00)
--- NOTE | 2018-12-04 12:31 | TRS ---
CC: Dr. Dykes; Dr. Ohara at [facility]; Dr. Goel DATE OF ADMISSION: 12/03/2018. DATE OF TRANSFER: 12/04/2018. ACCEPTING PHYSICIAN: Dr. Segovia at [facility]. PRIMARY DIAGNOSIS: Acute decompensated systolic heart failure. SECONDARY DIAGNOSES: Presumed ischemic cardiomyopathy, elevated troponin consistent with recent ischemia or NV, acute kidney injury, type 2 diabetes, hypokalemia, polymyalgia rheumatica, moderate mitral regurgitation newly on an echocardiogram, recent stroke with left arm weakness and left facial droop, depression, acute neuroma, hyperlipidemia. MEDICATIONS ON TRANSFER: 1. Aspirin 81 mg p.o. daily. 2. Atorvastatin 80 mg p.o. q.p.m. 3. Cefepime 1 gm IV q.12 hours. 4. Vancomycin 750 mg IV q.12 hours. 5. Clopidogrel 75 mg p.o. daily. 6. Dextrose D50 half an amp for fingerstick less than 60 prn. 7. Furosemide 20 mg p.o. q.a.m. 8. Gabapentin 300 mg p.o. at bedtime. 9. Heparin drip currently running at 16 ml per hour. 10. Humalog insulin sliding scale. 11. Toprol XL 25 mg p.o. q.a.m. 12. Morphine 2 mg IV q.4 hours prn moderate pain. 13. Venlafaxine 37.5 mg p.o. q.p.m. 14. The patient also received potassium 40 mEq p.o. times 1 this morning. CONSULTATIONS: Dr. Goel of Cardiology, as well as Valery Davenport NP of Cardiology; Dr. Catherine of Palliative Care. PROCEDURES: None. HOSPITAL COURSE: The patient was admitted through the emergency department with progressive dyspnea for approximately three days. She did not have any chest pain at home, but did report some in the emergency department. The patient was admitted on October 20 to this hospital with a stroke and was found to have an abnormal EKG at that time, but declined stress test and cardiac catheterization at that time. Since being discharged from the stroke, she had declined falls and aching in her hips up to her shoulders. She was diagnosed with polymyalgia rheumatica as an outpatient and started on Methylprednisolone. She had some headaches that resolved with the steroids. The patient's initial evaluation in the ER for the chest x-ray showed patch infiltrates, right greater than left, possibly pulmonary edema versus pneumonia. Her BNP was greater than 1300. Her initial troponin was 2.45 and it shayan to a maximum of 3.86 and fell to 3.77. Her creatinine was 1.68 on admission which is double her normal and fell to 1.46 after a day of admission and diuresis. This is consistent with acute kidney injury, possible cardiorenal syndrome given her improvement with diuresis. The patient had an echocardiogram on the day of admission that showed an ejection fraction between 20 and 25 percent. There is anteroseptal and inferoseptal hypokinesis, as well as hypokinesis of the entire myocardium. The patient had an ejection fraction around 50 percent one month ago and she was admitted for a stroke. The patient also has mild aortic stenosis and a new diagnosis of moderate mitral regurgitation. Overnight, the patient remained dyspneic and requiring oxygen at 4 liters. Her blood pressure ranged between 102/70 up to 122/78. Her rhythm has been stable and heart rates around 90. Consultation with Cardiology again on the day after admission led to a discussion with Dr. Loco regarding cardiac cath for her presumed anterior ischemia or NV. Because she was in acute heart failure, it was found that the patient was too high risk to have a cardiac catheterization here. The patient and daughter accepted transfer to [facility] where she should have a myocardium viability study with PET or MRI and towards a cath and stent if that looks to be viable tissue. Because of a suspicion of pneumonia and the recent hospital admission, the patient was treated for hospital acquired pneumonia during the hospital stay here as well. At this point, my impression is that this is entirely a cardiac issue and that the antibiotics should be stopped upon transfer. Blood cultures are negative to date. Nasal swab for MRSA is negative. There was a suspicion of pneumonia given that her white count was 15.9 on admission and 12.4 on the second day of admission. Because of the acute kidney injury, the patient had a renal ultrasound which showed no bladder outlet obstruction and normal renal cortical thickness and echogenicity without any evidence of medical renal disease. There is a small left kidney stone. Her diabetes was poorly controlled. We stopped her sulfonurea and Farxiga on admission, partly due to her acute kidney injury. Her blood sugars have been between 174 and 215. She is taking oral Prednisone and started on Lantus on the day of transfer. DISPOSITION: [facility] for potential acute intervention for heart failure. CONDITION ON TRANSFER: Guarded. STATUS: Inpatient. DIET: Cardiac, diabetic, low salt. ACTIVITY: Out of bed to bathroom with assistance. [id number]/[facility] #: [id number] RENEE
[2018-12-04 14:12] VITALS: BP 116/79
[2018-12-05] MEDS ORDERED: Vancomycin Trough Check NOTE FOLLOW UP ONE (08:30)
== END 2018-12-04 14:42 | disposition short-term general hospital (02) | DRG 280 ==
LOC: ED 01:42 → ICU 07:23 → MEDTELE 20:15
PROVIDERS: ADMIT Hospitalist; ATTEND Internal Medicine
DX: I11.0 Hypertensive heart disease with heart failure (principal); I21.4 Non-ST elevation (NSTEMI) myocardial infarction; I50.21 Acute systolic (congestive) heart failure; N17.9 Acute kidney failure, unspecified; I25.5 Ischemic cardiomyopathy; E87.6 Hypokalemia; M35.3 Polymyalgia rheumatica; I08.0 Rheumatic disorders of both mitral and aortic valves; F32.9 Major depressive disorder, single episode, unspecified; D33.3 Benign neoplasm of cranial nerves; E78.5 Hyperlipidemia, unspecified; E11.65 Type 2 diabetes mellitus with hyperglycemia; N20.0 Calculus of kidney; I44.7 Left bundle-branch block, unspecified; E66.9 Obesity, unspecified; D72.829 Elevated white blood cell count, unspecified; R09.02 Hypoxemia; Z66 Do not resuscitate; R29.6 Repeated falls; I69.392 Facial weakness following cerebral infarction; I69.334 Monoplegia of upper limb following cerebral infarction affecting left non-dominant side; Z79.82 Long term (current) use of aspirin; Z79.02 Long term (current) use of antithrombotics/antiplatelets; Z79.4 Long term (current) use of insulin; Z68.29 Body mass index [BMI] 29.0-29.9, adult; Z88.2 Allergy status to sulfonamides; Z82.49 Family history of ischemic heart disease and other diseases of the circulatory system; Z98.42 Cataract extraction status, left eye
CPT/HCPCS: 36415; 71046; 76770; 80048; 80053; 82550; 82553; 82803; 83605; 83735; 83880; 84484; 85025; 85610; 85730; 86140; 87040; 87641; 93005; 93306; 96365; 96375; 99284; A9270-GY; C8929; J0692; J1644; J1940; J2270; J2543; J3370; J7512

== ENCOUNTER 2021-06-25 21:42 | Inpatient (IN) ==
[2021-06-25] MEDS ORDERED: Morphine 4 MG/ML VIAL (1 ml) IV ONE (22:14)
[2021-06-26] MEDS: Morphine 2 MG/ML SYRINGE IV PRN ×4 (00:03→13:33)
[2021-06-26 00:13] LABS: Albumin 3.7 g/dL (3.2-5.2); Albumin/Globulin Ratio 1.4 (1-3); Calcium 8.9 mg/dL (8.6-10.3); Globulin 2.7 g/dL (2-4); Potassium 4.4 mmol/L (3.5-5.0); Total Bilirubin 0.6 mg/dL (0.2-1.0); Total Protein 6.4 g/dL (6.4-8.9); eGFR CKD-EPI 64.2 (>60)
[2021-06-26 00:18] LABS: INR 4.66 (0.86-1.15)
[2021-06-26] MEDS ORDERED: Ondansetron 4 mg VIAL 2 MG/ML 2 ml VIAL IV PRN (00:24)
[2021-06-26] MEDS ORDERED: HYDROmorphone 1 MG/1 ML SYRINGE IV SLOW PU PRN (00:32)
[2021-06-26] MEDS ORDERED: Dextrose 50% Syringe 50 ml 25 GM/50 ML SYRINGE IV PUSH PRN (00:33)
[2021-06-26 05:27] LABS: ABS Basophils 0.1 10^3/ul (0-0.2); ABS Lymphocytes 1.7 10^3/ul (1.0-4.8); ABS Monocytes 0.7 10^3/ul (0-0.8); Eosinophil % 0.3 %; Hematocrit 39 % (35-47); Lymphocyte % 17.9 %; Mean Corpuscular HGB Conc 34 g/dL (31-36); Mean Corpuscular Hemoglobin 30 pg (27-31); Mean Corpuscular Volume 88 fL (80-97); Mean Platelet Volume 7.5 fL (7.4-10.4); Platelet Count 217 10^3/uL (150-450); Red Blood Count 4.39 10^6 /uL (3.70-4.87); Red Cell Distribution Width 15 % (10-15); White Blood Count 9.5 10^3/uL (3.5-10.8)
[2021-06-26 05:32] LABS: INR 3.62 (0.86-1.15)
[2021-06-26] MEDS: DULoxetine DR 30 mg CAP PO SCH (08:15)
[2021-06-26] MEDS: Timolol 0.5% OPTH.SOL BTL LEFT EYE SCH (12:45)
[2021-06-26] MEDS: NF: DAPAGLIFLOZIN 10 MG TAB (NF) PO SCH (12:46)
[2021-06-26] MEDS ORDERED: Morphine 2 MG/ML SYRINGE IV ONE (14:15)
[2021-06-26] MEDS ORDERED: Perflutren Lipid Microsphere 3 ML VIAL ONE (16:05)
[2021-06-26 20:51] LABS: Urine Appearance Clear; Urine Bilirubin Negative (Negative); Urine Blood Negative (Negative); Urine Color Yellow; Urine Glucose 3+(>=500 mg/dL) (Negative); Urine Ketones Trace (Negative); Urine Nitrite Negative (Negative); Urine Protein Negative (Negative); Urine Specific Gravity 1.018 (1.002-1.030); Urine Urobilinogen Negative (Negative)
[2021-06-27] MEDS: Morphine 2 MG/ML SYRINGE IV PRN ×2 (00:07→08:58)
[2021-06-27 06:45] LABS: INR 2.68 (0.86-1.15)
[2021-06-27] MEDS: DULoxetine DR 30 mg CAP PO SCH (08:50)
[2021-06-27] MEDS: Timolol 0.5% OPTH.SOL BTL LEFT EYE SCH (08:50)
[2021-06-27] MEDS: NF: DAPAGLIFLOZIN 10 MG TAB (NF) PO SCH (08:52)
[2021-06-27] MEDS ORDERED: NS 0.9% 500 ml BAG 500 ML IV ONE (10:28)
[2021-06-27] MEDS ORDERED: Warfarin per PHARMACY **NOTE FOLLOW UP SCH (17:00)
[2021-06-27 19:07] LABS: Calcium 8.8 mg/dL (8.6-10.3); Potassium 4.4 mmol/L (3.5-5.0); eGFR CKD-EPI 36.7 (>60)
[2021-06-27] MEDS: Senna TAB 8.6 mg TAB PO SCH (20:55)
[2021-06-27] MEDS ORDERED: Lactated Ringers 1000 ml BAG 1,000 ML IV SCH (22:00)
[2021-06-28 06:02] LABS: ABS Basophils 0.1 10^3/ul (0-0.2); ABS Eosinophils 0.2 10^3/ul (0-0.6); ABS Lymphocytes 2.1 10^3/ul (1.0-4.8); ABS Monocytes 0.6 10^3/ul (0-0.8); ABS Neutrophils 4.9 10^3/ul (1.5-7.7); Eosinophil % 2.2 %; Hematocrit 35 % (35-47); Hemoglobin 11.6 g/dL (12.0-16.0); Lymphocyte % 26.4 %; Mean Corpuscular HGB Conc 33 g/dL (31-36); Mean Corpuscular Hemoglobin 29 pg (27-31); Mean Corpuscular Volume 88 fL (80-97); Mean Platelet Volume 7.7 fL (7.4-10.4); Platelet Count 211 10^3/uL (150-450); Red Blood Count 3.97 10^6 /uL (3.70-4.87); Red Cell Distribution Width 15 % (10-15); White Blood Count 7.8 10^3/uL (3.5-10.8)
[2021-06-28 06:07] LABS: INR 2.53 (0.86-1.15)
[2021-06-28 06:19] LABS: Calcium 8.7 mg/dL (8.6-10.3); eGFR CKD-EPI 45.6 (>60)
[2021-06-28] MEDS: Timolol 0.5% OPTH.SOL BTL LEFT EYE SCH (08:10)
[2021-06-28] MEDS: DULoxetine DR 30 mg CAP PO SCH (08:10)
[2021-06-28] MEDS: NF: DAPAGLIFLOZIN 10 MG TAB (NF) PO SCH (08:12)
[2021-06-28 13:08] LABS: Rapid COVID-19 Molecular Undetected (Undetected)
[2021-06-28] MEDS: Warfarin DAILY REMINDER **NOTE FOLLOW UP SCH (17:34)
[2021-06-28] MEDS: Senna TAB 8.6 mg TAB PO SCH (20:34)
[2021-06-29 05:50] LABS: ABS Eosinophils 0.1 10^3/ul (0-0.6); ABS Lymphocytes 1.6 10^3/ul (1.0-4.8); ABS Monocytes 0.6 10^3/ul (0-0.8); ABS Neutrophils 4.6 10^3/ul (1.5-7.7); Hematocrit 34 % (35-47); Hemoglobin 11.7 g/dL (12.0-16.0); Lymphocyte % 23.1 %; Mean Corpuscular HGB Conc 35 g/dL (31-36); Mean Corpuscular Hemoglobin 30 pg (27-31); Mean Corpuscular Volume 87 fL (80-97); Mean Platelet Volume 7.4 fL (7.4-10.4); Nucleated Red Blood Cells % 0.1; Platelet Count 209 10^3/uL (150-450); Red Blood Count 3.88 10^6 /uL (3.70-4.87); Red Cell Distribution Width 15 % (10-15)
[2021-06-29 05:54] LABS: INR 1.61 (0.86-1.15)
[2021-06-29 06:22] LABS: Calcium 8.9 mg/dL (8.6-10.3); Potassium 3.9 mmol/L (3.5-5.0)
[2021-06-29] MEDS: NF: DAPAGLIFLOZIN 10 MG TAB (NF) PO SCH (08:26)
[2021-06-29] MEDS: DULoxetine DR 30 mg CAP PO SCH (10:42)
[2021-06-29] MEDS: Timolol 0.5% OPTH.SOL BTL LEFT EYE SCH (10:43)
[2021-06-29] MEDS: Enoxaparin 100 MG/ML SYR SUBCUT SCH (17:25)
[2021-06-29] MEDS: Warfarin DAILY REMINDER **NOTE FOLLOW UP SCH (19:01)
[2021-06-29] MEDS: Senna TAB 8.6 mg TAB PO SCH (21:21)
[2021-06-29] MEDS: Nystatin TOP POWDER 15 GM BTL TOPICAL SCH (21:26)
[2021-06-30] MEDS: Enoxaparin 100 MG/ML SYR SUBCUT SCH (05:51)
[2021-06-30 05:58] LABS: INR 1.57 (0.86-1.15)
[2021-06-30] MEDS ORDERED: Morphine 2 MG/ML SYRINGE IV ONE (10:21)
[2021-06-30] MEDS: NF: DAPAGLIFLOZIN 10 MG TAB (NF) PO SCH (11:43)
[2021-06-30] MEDS: DULoxetine DR 30 mg CAP PO SCH (11:43)
[2021-06-30] MEDS: Nystatin TOP POWDER 15 GM BTL TOPICAL SCH (11:44)
[2021-06-30] MEDS: Timolol 0.5% OPTH.SOL BTL LEFT EYE SCH (11:44)
[2021-06-30 12:08] VITALS: BP 141/77
[2021-06-30] MEDS ORDERED: Enoxaparin 100 MG/ML SYR SUBCUT SCH (21:00)
== END 2021-06-30 13:30 | DRG 563 ==
LOC: ED 21:42 → EDHOLD 06-26 00:20 → SUATTDRO 06-26 00:20 → SSU 06-26 03:35
PROVIDERS: ADMIT Internal Medicine; ATTEND Hospitalist